=== PATIENT | female | born 1950 | race Caucasian/White ===

== ENCOUNTER 2018-12-24 18:19 | Inpatient (IN) | payer MEDICARE, SELFPAY ==
[2018-12-24 18:21] VITALS: BP 122/68; PULSE 108; RESP 18; TEMP 36.4; O2SAT 93; BMI 23.1
[2018-12-24] MEDS: 0.9% Normal Saline 1,000 ML 1000 ML IV (19:02)
--- NOTE | 2018-12-24 19:17 | ED.VISSUMM ---
- ER Visit Summary Date of Service: 12/24/18 Chief Complaint: [Blood in stool] History of Present Illness: The patient is a 68 F [presents to the emergency department but in her stool for several days. Patient states that initially stool was dark but has turned more bloody today. Patient states that she has had 3 other episodes of blood in her stool over the last 3 years. Patient both times has had colonoscopy and EGD without any source being found. 3 years ago she did require a transfusion requiring 3 units of blood. She denies any abdominal pain. She denies feeling lightheaded or dizzy. Patient has noted that at times today her heart rates gone up to almost 120. Patient is not on any blood thinners. She has no medical history. No history of bleeding ulcers. She denies alcohol use other than on a rare occasion.] Physical Examination: [HEENT-PERRLA, EOMI. Cranial nerves II through XII grossly intact. TMs clear. Mucous membranes moist. No adenopathy. Cardiovascular-regular rate and rhythm without murmur or ectopy Lungs-clear to auscultation, chest wall stable without crepitus or subcu emphysema Abdomen-normoactive bowel sounds, soft, nontender, no rebound or rigidity, no peritoneal signs. Rectal exam-no bleeding hemorrhoids noted or fissures. Patient does have maroon stool is Hemoccult positive. Extremities-intact ?4, normal range of motion, normal pulses, atraumatic] Test Results: [CBC with differential obtained showed a white count of 11.4, hemoglobin 8.0, hematocrit 23, platelets 163. Sodium was 140, potassium 3.4, chloride 108, CO2 23, glucose 157, BUN 29, gram 0.88. Orthostatics were negative.] Emergency Department Course and Treatment: [Patient was given normal saline and she had a type and screen sent. Case was discussed with general surgeon on-call as well as with the admitting physician Dr. Aguero who will admit patient.] Treatment Plan: [Admit for serial H&H's and further investigation of the source of bleeding.] Disposition: [Admit] Impression: [Gastrointestinal hemorrhage] This note was generated with [employer] dictation software. It may contain incorrect words, spelling, and punctuation that were not noted in review of the chart prior to signing ED Disposition - Plan for ED Patient: Referrals: [facility] Doctor,Out of [Primary Care Provider] -
--- NOTE | 2018-12-24 19:17 | ED.RN ---
Report taken from ADAM. Live placed no blood, he will come back for labs. PT resting in bed comfortably. Updated POC.
[2018-12-24 19:27] VITALS: BP 128/70; BP 131/64; BP 133/57; PULSE 84; PULSE 88
[2018-12-24 19:33] LABS: Absolute Lymphocyte Count 2.04 X10^3/ul (0.83-4.51); Absolute Neutrophil Count 8.5 X10^3/uL (2.0-7.7); Basophil# 0.02 X10^3/uL; Basophil% 0.2 % (0-1); Eosinophil# 0.06 X10^3/uL; Eosinophils% 0.5 % (0-5); Hematocrit 22.9 % (37-47); Lymphocyte # 2.04 X10^3/ul (4.0); Mean Corp Hgb Conc 34.9 g/gl (32-36); Mean Corpuscular Hgb 30.1 pg (27.0-32.0); Mean Corpuscular Volume 86.1 fL (81-99); Mean Platelet Vol. 9.9 fl (6.2-12.0); Monocyte# 0.74 X10^3/uL; Monocyte% 6.5 % (0-10); Neutrophil # 8.49 X10^3/uL (2.7-7.7); Neutrophil % 74.7 % (47-70); Platelet Count 163 K/mm3 (150-450); RBC Distribution Width CV 13.6 % (11.6-14.6); RBC Distribution Width SD 43.3 fl (35.1-43.9); Red Blood Count 2.66 M/mm3 (4.2-5.4); White Blood Count 11.4 K/mm3 (4.4-11.0)
[2018-12-24 19:43] LABS: POSITIVE COUNT NO; POSITIVE DIFFERENTIAL NO; POSITIVE MORPHOLOGY NO
[2018-12-24 19:55] LABS: Anion Gap 9 (5-15); BUN 29 mg/dL (7-18); BUN/Creat Ratio 33.1 RATIO (10-20); Calcium,Total 8.1 mg/dL (8.5-10.1); Chloride 108 mmol/L (98-107); Creatinine, Serum 0.88 mg/dL (0.55-1.02); EST Glomerular Filtration Rate 68 mL/min (>60); Est Glom Filt Rate - Afr Amer 82 mL/min (>60); Estimated Creatinine Clearance 51.37 ml/min; Glucose 157 mg/dL (74-106); Potassium 3.4 mmol/L (3.5-5.1); Sodium Level 140 mmol/L (136-145)
--- NOTE | 2018-12-24 20:43 | PCM.HP.STD ---
Problem List (1) Chronic anemia Status: Chronic (2) History of GI bleed Status: Chronic History of Present Illness Date of Admission: 12/24/18 Chief Complaint: Bloody stool. The patient is a 68 year old F with past medical history as mentioned above presented to the emergency room because of bloody stool. Today, she had a bloody bowel movement with maroon-colored stool, large amount, associated with dizziness and her heart rate was around 119 on her Fitbit watch, was pale, weak and tired and without aggravating or relieving factors. She denied abdominal pain, nausea or vomiting. She mentioned that the last 2 to 3 days, she has been having dark-colored stool, more black-colored but today, it was maroon-colored stool. Patient denies use of NSAIDs. She denied epigastric pain or heartburn. Denied chest pain, shortness of breath, syncope or presyncope. She has history of GI bleed back in 2015, underwent upper EGD, colonoscopy as well as capsule endoscopy and no source of bleeding identified. During that time, she received 3 months of packed RBCs. Again on 2017, she had another episode of GI bleed, underwent upper EGD that again showed no evidence of active bleeding. In the emergency department, she was afebrile, slightly tachycardic, blood pressure stable. Rectal examination was performed by the ER physician, revealed maroon-colored stool, no bleeding hemorrhoids. Routine blood work was remarkable for mild leukocytosis, hemoglobin of 8 grams per deciliter, potassium 3.4. BUN was 29, creatinine was normal. She is being admitted for GI bleed and acute on chronic blood loss anemia. Past Medical History Past Medical History (Chronic Problems): Chronic Problems Chronic anemia (Chronic) History of GI bleed (Chronic) Allergies No Known Allergies Allergy (Verified 12/24/18 18:21) Home Medications: Ambulatory Orders Medication Instructions Recorded NK 12/24/18 Surgical History: - - Dilatation and curettage. 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 Denies: Anorexia, Chills, Fever Eyes: Denies: Blurred vision, Double vision, Drainage, Redness HEENT: Denies: Difficulty Hearing, Dysphasia, Ear Pain, Eye Pain, Nasal bleeding, Nasal Congestion, Sore Throat Cardiovascular: Reports: Light Headedness. Denies: Chest Pain, Chest Pressure, Chest Tightness, Edema, Heaviness, Orthopnea, Palpitations, Paroxysmal Noc. Dyspnea, Syncope Respiratory: Denies: Cough, Hemoptysis, Pleuritic Pain, Shortness of Breath, Sputum production, Wheezing Gastrointestinal: Reports: Hematochezia, Melena. Denies: Abdominal Pain, Constipation, Diarrhea, Hematemesis, Nausea, Vomiting Genitourinary: Denies: Dysuria, Frequency, Hematuria Musculoskeletal: Denies: Arm Pain, Back Pain, Foot Pain Skin: Denies: Dryness, Rash Neurological: Denies: Balance problems, Double vision, Change in Speech, Slurred speech, Confusion, Focal weakness, Headaches, Incoordination Psychiatric: Denies: Anxiety, Depression Endocrine: Denies: Change in Body Habitus, Polydipsia, Polyuria VTE Information - Inpt Only VTE Present on Admission: No VTE Mechan Device Prophylaxis: SCD's VTE Pharm Prophylaxis ordered?: No - Physical Exam General: Alert, Oriented x3, Cooperative, No apparent distress, - - Pale. HEENT: Atraumatic, PERRLA, EOMI, Normocephalic Oral: Moist Mucosa, No Gingival or Mucosal Lesions/ Ulcerations Neck: Supple, No JVD, Negative Carotid Bruits, Trachea Midline, Thyroid Normal Size and Texture Lungs: Clear to auscultation, Normal air movement, No rhonchi, No wheeze, No rales, Diminished Cardiovascular: Regular rate, Regular Rhythm, Normal S1, Normal S2, No murmurs, PMI Normal Abdomen: Bowel Sounds Present, Soft, Non Tender, Non-Distended, No Hepato-splenomegaly Extremities: No clubbing, No cyanosis, No edema Skin: No rashes, No breakdown Lymphatic: No Cervical, Supraclavicular, or Inguinal Adenopathy Neurological: Cranial nerves II-XII grossly intact, Motor Exam 5/5 strength throughout Psych/Mental Status: Normal Affect, Appropriate, Alert and oriented to time, place, person, mood and affect Vital Signs Temp Pulse Resp BP Pulse Ox 97.6 F L 88 18 131/64 H 93 12/24/18 18:21 12/24/18 19:27 12/24/18 18:21 12/24/18 19:27 12/24/18 18:21 Oxygen Delivery Method Room Air Weight: 135 lb Body Mass Index (BMI) 23.1 Microbiology Past 72 Hours 12/24/18 19:00 Stool Occult Blood (RADHA) - Final Stool Laboratory Tests Past 24 Hrs 12/24/18 12/24/18 12/24/18 19:15 19:15 19:15 WBC 11.4 H RBC 2.66 L Hgb 8.0 L Hct 22.9 L MCV 86.1 MCH 30.1 MCHC 34.9 RDW 13.6 RDW Differential 43.3 Plt Count 163 MPV 9.9 Immature Gran % (Auto) 0.100 Neut % (Auto) 74.7 H Lymph % (Auto) 18.0 L Willacy % (Auto) 6.5 Eos % (Auto) 0.5 Baso % (Auto) 0.2 Absolute Neuts (auto) 8.5 H Absolute Lymphs (auto) 2.04 Total Counted Not Reportable Sodium 140 Potassium 3.4 L Chloride 108 H Carbon Dioxide 23.0 Anion Gap 9 BUN 29 H Creatinine 0.88 Estim Creat Clear Calc 51.37 Est GFR (MDRD) Af Amer 82 Est GFR (MDRD) Non-Af 68 BUN/Creatinine Ratio 33.1 H Glucose 157 H Calcium 8.1 L Blood Type O POSITIVE Antibody Screen NEGATIVE Assessment/Plan This is a 68 years old female patient presented to the emergency room because of bloody stools and she is being admitted for GI bleed and acute on chronic blood loss anemia. #1 GI bleed: Unknown source, could be upper or lower GI bleeding. BUN is elevated raising the possibility of upper GI bleed. Patient had a history of GI bleed in the past, status post upper EGD, colonoscopy and capsule endoscopy in 2016, no source of bleeding identified. Another episode of GI bleed on 2018, status post upper EGD, no source of bleeding identified. At this time, hemoglobin is 8 g/dL. Platelet count is normal. She is slightly tachycardic, other vitals are stable. Plan: Admit to [facility] floor, telemetry, bedrest, clear liquids, IV fluids, start IV Protonix, H&H every 8 hours, type and crossmatch 2 units of packed RBCs, transfuse if hemoglobin less than 8 g/dL, pro time and INR, general surgery consult. #2 acute on chronic blood loss anemia: According to the patient, her baseline hemoglobin has been around 11 g/dL. She received blood transfusion back in 2015, received 3 units of packed RBCs. At this time, hemoglobin is 8 g/dL. Plan to transfuse if hemoglobin less than 8 g/dL. #3 hypokalemia: Potassium is 3.4. will give K. Dur 60 mEq x 1 p.o., repeat BMP tomorrow morning. #4 DVT prophylaxis: SCDs. This note was generated with [employer] software. It may contain incorrect words, spelling, and punctuation that were not noted in checking the note before signing. Code Visit Inpatient E&M: 12702 Init Hosp L3
[2018-12-24 20:47] VITALS: BP 132/62; PULSE 85; RESP 16; TEMP 36.9; O2SAT 100
[2018-12-24 21:14] VITALS: BMI 23.6; BMI 23.7
[2018-12-24 21:59] VITALS: PULSE 97
[2018-12-24 22:17] VITALS: BP 120/61; PULSE 85; RESP 16; TEMP 37.1; O2SAT 100
[2018-12-24] MEDS: 0.9% Normal Saline 1,000 ML 100 ML IV (22:30)
[2018-12-24 23:01] LABS: Hematocrit 21.1 % (37-47); Hemoglobin 7.3 g/dl (12.0-15.0)
[2018-12-24 23:10] LABS: International Normalized Ratio 1.2; Prothrombin Time (Protime)PT. 14.9 SECONDS (11.7-14.9)
[2018-12-25] VITALS (20 sets, daily range): BP systolic 98–148; BP diastolic 39–79; PULSE 60–90; RESP 16–18; TEMP 36.4–37; O2SAT 93–100
--- NOTE | 2018-12-25 03:15 | NURSING ---
Pt mentioned that she took activated charcoal a few days ago for upset stomach.
[2018-12-25 05:14] LABS: Absolute Lymphocyte Count 2.07 X10^3/ul (0.83-4.51); Absolute Neutrophil Count 6.5 X10^3/uL (2.0-7.7); Basophil# 0.02 X10^3/uL; Basophil% 0.2 % (0-1); Eosinophil# 0.05 X10^3/uL; Eosinophils% 0.6 % (0-5); Hematocrit 24.6 % (37-47); Hemoglobin 8.5 g/dl (12.0-15.0); Lymphocyte # 2.07 X10^3/ul (4.0); Lymphocyte % 22.8 % (19-41); Mean Corp Hgb Conc 34.6 g/gl (32-36); Mean Corpuscular Hgb 30.4 pg (27.0-32.0); Mean Corpuscular Volume 87.9 fL (81-99); Mean Platelet Vol. 10.3 fl (6.2-12.0); Monocyte# 0.43 X10^3/uL; Monocyte% 4.7 % (0-10); Neutrophil # 6.49 X10^3/uL (2.7-7.7); Neutrophil % 71.6 % (47-70); Platelet Count 140 K/mm3 (150-450); RBC Distribution Width CV 13.9 % (11.6-14.6); White Blood Count 9.1 K/mm3 (4.4-11.0)
[2018-12-25 05:21] LABS: POSITIVE COUNT NO; POSITIVE DIFFERENTIAL NO; POSITIVE MORPHOLOGY NO
[2018-12-25 05:31] LABS: Anion Gap 5 (5-15); BUN 17 mg/dL (7-18); BUN/Creat Ratio 26.8 RATIO (10-20); Calcium,Total 8.2 mg/dL (8.5-10.1); Chloride 116 mmol/L (98-107); Creatinine, Serum 0.63 mg/dL (0.55-1.02); EST Glomerular Filtration Rate 98 mL/min (>60); Est Glom Filt Rate - Afr Amer 119 mL/min (>60); Glucose 97 mg/dL (74-106); Potassium 4.5 mmol/L (3.5-5.1); Sodium Level 144 mmol/L (136-145)
--- NOTE | 2018-12-25 07:14 | CON.PCM_ITS ---
Reason for Consult Date of Consultation: 12/25/18 History of Present Illness: The patient is a 68 year old F presented due to GI bleed. Patient does have a past medical history for a GI bleed x2. Back in 2015 while she is at home in [place] she needed 3 units packed red blood cells also had an EGD and col onoscopy as well as capsule endoscopy which were all negative per the patient. Last December patient was in [place] and she had a small amount of dark red blood per rectum she did go into did not need any transfusions. She did choose to do an outpatient work-up back at home. A week later she had an upper endoscopy which did not show anything. She was told may be avoid harder foods or nuts that she may have scratched the lining of her esophagus. Patient denies any history of heartburn reflux or abdominal pain in the past. Patient states that on December 22 she felt like her stomach was heavy denies any pain so she took active charcoal x2. Patient did have a small bowel movement which was darker but also had a small amount of dark blood as well. Patient decided to try to to rest her stomach and not eat as much that day. The next morning she had the same small bowel movement which was darker along with a small amount of dark red blood. She did fast that day. Yesterday she had a little bit of broth and ice cream and at 6 PM she did have a large amount of diarrhea which was black/maroon per patient and that was her last bowel movement. Patient denied any abdominal pain yesterday or today. Patient will be in town until January 03 and then she will leave for [place] for the next month. 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, - Lives: Spouse/ Significant Other Smoking Status: Never smoker Alcohol: None Drugs: None - *Family History Maternal History Items: Heart Disease, Hypertension Paternal History Items: Cancer - Physical Exam General: Alert, Oriented x3, Cooperative, No apparent distress HEENT: Atraumatic Lungs: Normal air movement Cardiovascular: Regular rate Abdomen: Soft, Non Tender - No peritoneal signs, Non-Distended Extremities: No clubbing, No cyanosis, No edema Neurological: Cranial nerves II-XII grossly intact Psych/Mental Status: Normal Affect Vital Signs Temp Pulse Resp BP Pulse Ox 98.6 F 71 16 113/39 L 96 12/25/18 03:13 12/25/18 03:13 12/25/18 03:13 12/25/18 03:13 12/25/18 03:13 Oxygen Delivery Method Room Air Weight: 137 lb 12.623 oz Body Mass Index (BMI) 23.6 Intake and Output for Last 24 Hours 12/23/18 12/24/18 12/25/18 23:59 23:59 23:59 Intake Total 2312 / 2312 Output Total 2300 / 2300 Balance Microbiology Past 72 Hours 12/24/18 19:00 Stool Occult Blood (RADHA) - Final Stool Laboratory Tests Past 24 Hrs 12/24/18 12/24/18 12/24/18 19:15 19:15 19:15 WBC 11.4 H RBC 2.66 L Hgb 8.0 L Hct 22.9 L MCV 86.1 MCH 30.1 MCHC 34.9 RDW 13.6 RDW Differential 43.3 Plt Count 163 MPV 9.9 Immature Gran % (Auto) 0.100 Neut % (Auto) 74.7 H Lymph % (Auto) 18.0 L Nye % (Auto) 6.5 Eos % (Auto) 0.5 Baso % (Auto) 0.2 Absolute Neuts (auto) 8.5 H Absolute Lymphs (auto) 2.04 Total Counted Not Reportable PT INR Sodium 140 Potassium 3.4 L Chloride 108 H Carbon Dioxide 23.0 Anion Gap 9 BUN 29 H Creatinine 0.88 Estim Creat Clear Calc 51.37 Est GFR (MDRD) Af Amer 82 Est GFR (MDRD) Non-Af 68 BUN/Creatinine Ratio 33.1 H Glucose 157 H Calcium 8.1 L Blood Type O POSITIVE Antibody Screen NEGATIVE Crossmatch 12/24/18 12/24/18 12/24/18 19:15 22:45 22:45 WBC RBC Hgb 7.3 L Hct 21.1 L MCV MCH MCHC RDW RDW Differential Plt Count MPV Immature Gran % (Auto) Neut % (Auto) Lymph % (Auto) Nye % (Auto) Eos % (Auto) Baso % (Auto) Absolute Neuts (auto) Absolute Lymphs (auto) Total Counted PT 14.9 INR 1.2 Sodium Potassium Chloride Carbon Dioxide Anion Gap BUN Creatinine Estim Creat Clear Calc Est GFR (MDRD) Af Amer Est GFR (MDRD) Non-Af BUN/Creatinine Ratio Glucose Calcium Blood Type Antibody Screen Crossmatch See Detail 12/25/18 12/25/18 04:35 04:35 WBC 9.1 RBC 2.80 L Hgb 8.5 L Hct 24.6 L MCV 87.9 MCH 30.4 MCHC 34.6 RDW 13.9 RDW Differential 45.0 H Plt Count 140 L MPV 10.3 Immature Gran % (Auto) 0.100 Neut % (Auto) 71.6 H Lymph % (Auto) 22.8 Nye % (Auto) 4.7 Eos % (Auto) 0.6 Baso % (Auto) 0.2 Absolute Neuts (auto) 6.5 Absolute Lymphs (auto) 2.07 Total Counted Not Reportable PT INR Sodium 144 Potassium 4.5 Chloride 116 H Carbon Dioxide 23.0 Anion Gap 5 BUN 17 Creatinine 0.63 Estim Creat Clear Calc 45.20 Est GFR (MDRD) Af Amer 119 Est GFR (MDRD) Non-Af 98 BUN/Creatinine Ratio 26.8 H Glucose 97 Calcium 8.2 L Blood Type Antibody Screen Crossmatch Assessment/Plan 68-year-old female with GI bleed 1. Did offer the patient EGD and colonoscopy due to patient's history of GI bleed. Did discuss the procedure including but not limited to risk of bleeding, perforation which may require emergency surgery/transfer to tertiary care facility, injury to another organ, and anesthesia. Currently patient does not think that she wants to undergo the EGD or the colonoscopy as last time and also the time before they did not find anything and she states she knows she should not eat harder foods or nuts. Discussed with patient I would recommend EGD or colonoscopy because we cannot say that nothing further was going on. Patient will think about it today. If patient does not elect to get the EGD or colonoscopy to remain stable I will recommend her going home with PPI twice daily for 2 weeks and then a PPI once a day after that. Patient was agreeable that if she did not get any endoscopy but if she had any recurrent episodes she would come in to get that done. Addendum: Patient did have dark clot bowel movement. She is agreeable to undergo an EGD and colonoscopy. We will begin the bowel prep of Dulcolax x4 and wait 2 hours Gatorade and MiraLAX mixture total of 64 ounces of Gatorade and MiraLAX of 8.3 ounces. Donna Amos M.D. Pager: [phone] [facility] [address] [place] [address], [facility], [address] [place] [address] Office: [phone] Code Visit Inpatient E&M: 59697 Init Hosp L2
[2018-12-25] MEDS: Bisacodyl 5 MG Tablet 20 MG PO (09:15)
[2018-12-25] MEDS: Polyethylene Glycol 3350 17 GM PACKET 238 GM PO (09:16)
[2018-12-25] MEDS: 0.9% Normal Saline 1,000 ML 100 ML IV (09:21)
--- NOTE | 2018-12-25 12:40 | EKG12_ITS ---
Test Reason : PRE OP Blood Pressure : / mmHG Vent. Rate : 076 BPM Atrial Rate : 076 BPM P-R Int : 198 ms QRS Dur : 090 ms QT Int : 402 ms P-R-T Axes : 069 030 049 degrees QTc Int : 452 ms Normal sinus rhythm Normal ECG Confirmed by CHRISTEN DIAL, BALDEMAR ([id number]), editor newspaper AUSTIN GONZALEZ ([id number]) on 12/28/2018 12:43:20 PM Referred By: MARCELINO Confirmed By:BALDEMAR VELÁSQUEZ MD
[2018-12-25 14:37] LABS: Hematocrit 31.4 % (37-47); Hemoglobin 10.7 g/dl (12.0-15.0)
--- NOTE | 2018-12-25 18:16 | PN_ITS ---
Subjective: Patient was seen and examined today, she received 2 units of packed red blood cells today, her last hemoglobin this afternoon was 10.7. She is prepping for her colonoscopy tomorrow, she has maroon liquid in her commode that smells of blood. Patient states that she had a past history of GI bleed but her physicians were not able to ascertain the actual site of the GI bleed and she had testing including a capsule endoscopy. Patient denies taking any anti- inflammatories at home on a regular basis, she takes no prescription medications. - Physical Exam General: Alert, Oriented x3, Cooperative, No apparent distress, Well developed HEENT: Atraumatic, PERRLA, EOMI, Normocephalic Oral: Moist Mucosa Neck: Supple, Trachea Midline, Thyroid Normal Size and Texture Lungs: Clear to auscultation, Normal air movement, No rhonchi, No wheeze, No rales, Diminished, Rales Cardiovascular: Regular rate, Regular Rhythm, Normal S1, Normal S2, No murmurs, No Ectopic Activity Abdomen: Bowel Sounds Present, Soft, Non Tender, Non-Distended, No hernias noted Extremities: No clubbing, No cyanosis, No edema, Capillary Refill Less than 3 Seconds Skin: No rashes, No breakdown Musculoskeletal: No Tenderness to Palpation of Joints or Extremities Neurological: Cranial nerves II-XII grossly intact, Neuro grossly intact, Sensory exam intact to light touch and pain Psych/Mental Status: Normal Affect, Appropriate, Alert and oriented to time, place, person, mood and affect Vital Signs Temp Pulse Resp BP Pulse Ox 98.1 F 79 18 148/78 H 96 12/25/18 16:58 12/25/18 16:58 12/25/18 16:58 12/25/18 16:58 12/25/18 16:58 Oxygen Delivery Method Room Air Weight: 62.5 kg Body Mass Index (BMI) 23.6 Intake and Output for Last 24 Hours 12/23/18 12/24/18 12/25/18 23:59 23:59 23:59 Intake Total 6051 / 6051 Output Total 3400 / 3400 Balance 2651 / 2651 Microbiology Past 72 Hours 12/24/18 19:00 Stool Occult Blood (RADHA) - Final Stool Laboratory Tests Past 24 Hrs 12/24/18 12/24/18 12/24/18 19:15 19:15 19:15 WBC 11.4 H RBC 2.66 L Hgb 8.0 L Hct 22.9 L MCV 86.1 MCH 30.1 MCHC 34.9 RDW 13.6 RDW Differential 43.3 Plt Count 163 MPV 9.9 Immature Gran % (Auto) 0.100 Neut % (Auto) 74.7 H Lymph % (Auto) 18.0 L Sherman % (Auto) 6.5 Eos % (Auto) 0.5 Baso % (Auto) 0.2 Absolute Neuts (auto) 8.5 H Absolute Lymphs (auto) 2.04 Total Counted Not Reportable PT INR Sodium 140 Potassium 3.4 L Chloride 108 H Carbon Dioxide 23.0 Anion Gap 9 BUN 29 H Creatinine 0.88 Estim Creat Clear Calc 51.37 Est GFR (MDRD) Af Amer 82 Est GFR (MDRD) Non-Af 68 BUN/Creatinine Ratio 33.1 H Glucose 157 H Calcium 8.1 L Blood Type O POSITIVE Antibody Screen NEGATIVE Crossmatch 12/24/18 12/24/18 12/24/18 19:15 22:45 22:45 WBC RBC Hgb 7.3 L Hct 21.1 L MCV MCH MCHC RDW RDW Differential Plt Count MPV Immature Gran % (Auto) Neut % (Auto) Lymph % (Auto) Sherman % (Auto) Eos % (Auto) Baso % (Auto) Absolute Neuts (auto) Absolute Lymphs (auto) Total Counted PT 14.9 INR 1.2 Sodium Potassium Chloride Carbon Dioxide Anion Gap BUN Creatinine Estim Creat Clear Calc Est GFR (MDRD) Af Amer Est GFR (MDRD) Non-Af BUN/Creatinine Ratio Glucose Calcium Blood Type Antibody Screen Crossmatch See Detail 12/25/18 12/25/18 12/25/18 04:35 04:35 14:00 WBC 9.1 RBC 2.80 L Hgb 8.5 L 10.7 L Hct 24.6 L 31.4 L MCV 87.9 MCH 30.4 MCHC 34.6 RDW 13.9 RDW Differential 45.0 H Plt Count 140 L MPV 10.3 Immature Gran % (Auto) 0.100 Neut % (Auto) 71.6 H Lymph % (Auto) 22.8 Sherman % (Auto) 4.7 Eos % (Auto) 0.6 Baso % (Auto) 0.2 Absolute Neuts (auto) 6.5 Absolute Lymphs (auto) 2.07 Total Counted Not Reportable PT INR Sodium 144 Potassium 4.5 Chloride 116 H Carbon Dioxide 23.0 Anion Gap 5 BUN 17 Creatinine 0.63 Estim Creat Clear Calc 45.20 Est GFR (MDRD) Af Amer 119 Est GFR (MDRD) Non-Af 98 BUN/Creatinine Ratio 26.8 H Glucose 97 Calcium 8.2 L Blood Type Antibody Screen Crossmatch Medical Necessity - Tobacco Use Smoking Status: Never smoker Assessment/Plan #1 acute GI bleed-not clear at this point whether it is upper or lower GI bleed- patient will undergo an EGD and colonoscopy tomorrow. Patient may have an undiagnosed AVM #2 acute blood loss anemia requiring blood transfusion-H&H will be monitored #3 hypokalemia-corrected Code Visit Inpatient E&M: 05522 Subs Hosp L2
[2018-12-25 20:36] LABS: Hematocrit 31.8 % (37-47); Hemoglobin 10.9 g/dl (12.0-15.0)
[2018-12-26] VITALS (10 sets, daily range): BP systolic 109–146; BP diastolic 58–80; PULSE 65–79; RESP 16–18; TEMP 36.3–36.9; O2SAT 95–100
--- NOTE | 2018-12-26 | IMM_PTH ---
PATIENT: BELLE GOOD LOC: MS3 U#:[id number] AGE/SX: 68/F ROOM: MS313 RE12/24/[address]: Dr. Lavelle Stevens MD : [id number] BED: 1 DIS: 12/26/2018 SPEC #: [id number] RECD: 12/27/18 15:11 STATUS: SOUEmiliana REQ #: [id number] IVANA: 12/26/18 00:[address]: Donna Amos DEPT: IMMUNOHISTOCHEMISTRY RECD BY: Lore Salgado ENTERED: 12/27/18 15:11 SP TYPE: IMMUNO OTHR DR: MD Dr. Ruslan Hill MD No Primary Care Phys Tissues: A - Stomach, NOS Procedures: H Pylori (initial) PHYSICIAN & INSTITUTION [place] [id number] SPECIMEN INFORMATION: Tissue Source: A - Antral biopsy Clinical Info: GI bleed Specimen Number: [id number] CPT code: 58344 METHODOLOGY: Deparaffinized sections of prefer/formalin-fixed tissue or PAP/DQ stained slides are incubated with monoclonal/polyclonal antibodies/oligonucleotide probes. Localization is made via biotin free immunoperoxidase method. Appropriate controls are performed and reacted as expected. Results on target cell population are indicated in the following table: RESULTS: ANTIBODY / CLONE RESULT Block A H Pylori (polyclonal) negative These tests were developed and their performance characteristics determined by [facility]. They may not have been cleared or approved by the [place]. Food and Drug Administration. The FDA has determined that such clearance or approval is not necessary. INTERPRETATION: A. Antral biopsy: Negative for Helicobacter pylori organisms. AM:kriss 12/30/18
[2018-12-26] MEDS: 0.9% Normal Saline 1,000 ML 100 ML IV ×2 (00:15→10:12)
[2018-12-26 03:04] LABS: Absolute Lymphocyte Count 1.98 X10^3/ul (0.83-4.51); Absolute Neutrophil Count 3.7 X10^3/uL (2.0-7.7); Basophil# 0.02 X10^3/uL; Basophil% 0.3 % (0-1); Eosinophil# 0.12 X10^3/uL; Eosinophils% 1.9 % (0-5); Hematocrit 27.7 % (37-47); Hemoglobin 9.6 g/dl (12.0-15.0); Lymphocyte # 1.98 X10^3/ul (4.0); Lymphocyte % 31.8 % (19-41); Mean Corp Hgb Conc 34.7 g/gl (32-36); Mean Corpuscular Hgb 30.4 pg (27.0-32.0); Mean Corpuscular Volume 87.7 fL (81-99); Mean Platelet Vol. 10.6 fl (6.2-12.0); Monocyte# 0.42 X10^3/uL; Monocyte% 6.8 % (0-10); Neutrophil # 3.66 X10^3/uL (2.7-7.7); Neutrophil % 58.9 % (47-70); Platelet Count 136 K/mm3 (150-450); RBC Distribution Width CV 13.3 % (11.6-14.6); RBC Distribution Width SD 40.8 fl (35.1-43.9); Red Blood Count 3.16 M/mm3 (4.2-5.4); White Blood Count 6.2 K/mm3 (4.4-11.0)
[2018-12-26 03:06] LABS: POSITIVE COUNT NO; POSITIVE DIFFERENTIAL NO; POSITIVE MORPHOLOGY NO
--- NOTE | 2018-12-26 06:44 | PN.SURG_ITS ---
Subjective: Patient got 2 units packed red blood cells her current hemoglobin is 9.6. Patient is having no further clots per rectum. She did complete the bowel prep. Denies any abdominal pain. - Physical Exam General: Alert, Oriented x3, Cooperative, No apparent distress Lungs: Normal air movement Cardiovascular: Regular rate Abdomen: Soft, Non Tender, Non-Distended Extremities: No clubbing, No cyanosis, No edema Vital Signs Temp Pulse Resp BP Pulse Ox 97.7 F L 68 16 109/64 97 12/26/18 02:50 12/26/18 02:50 12/26/18 02:50 12/26/18 02:50 12/26/18 02:50 Oxygen Delivery Method Room Air Weight: 137 lb 12.623 oz Body Mass Index (BMI) 23.6 Intake and Output for Last 24 Hours 12/24/18 12/25/18 12/26/18 23:59 23:59 23:59 Intake Total 6051 / 7151 1779 / 1779 Output Total 3400 / 4350 1350 / 1350 Balance 2651 / 2801 429 / 429 Microbiology Past 72 Hours 12/24/18 19:00 Stool Occult Blood (RADHA) - Final Stool Laboratory Tests Past 24 Hrs 12/24/18 12/25/18 12/25/18 19:15 14:00 20:00 WBC RBC Hgb 10.7 L 10.9 L Hct 31.4 L 31.8 L MCV MCH MCHC RDW RDW Differential Plt Count MPV Immature Gran % (Auto) Neut % (Auto) Lymph % (Auto) [place] % (Auto) Eos % (Auto) Baso % (Auto) Absolute Neuts (auto) Absolute Lymphs (auto) Total Counted Crossmatch See Detail 12/26/18 02:40 WBC 6.2 RBC 3.16 L Hgb 9.6 L Hct 27.7 L MCV 87.7 MCH 30.4 MCHC 34.7 RDW 13.3 RDW Differential 40.8 Plt Count 136 L MPV 10.6 Immature Gran % (Auto) 0.300 Neut % (Auto) 58.9 Lymph % (Auto) 31.8 [place] % (Auto) 6.8 Eos % (Auto) 1.9 Baso % (Auto) 0.3 Absolute Neuts (auto) 3.7 Absolute Lymphs (auto) 1.98 Total Counted Not Reportable Crossmatch Medical Necessity - Tobacco Use Smoking Status: Never smoker Assessment/Plan 68-year-old female with GI bleed 1. EGD and colonoscopy scheduled late morning today. Patient no further questions at this time. Donna Amos M.D. Pager: [phone] [facility] [address] [place] [address], [address] [place] [address] Office: [phone]
--- NOTE | 2018-12-26 09:03 | PCM.PN.HOSP ---
Subjective: Patient is a 68-year-old lady presented to the emergency department with hematochezia. 12/26/2018: She is scheduled to undergo endoscopic evaluation both upper and lower Objective: GENERAL: cooperative HEENT: Atraumatic; EYES; Anicteric, Normal Conjunctiva NECK; supple, normal thyroid, RESPIRATORY: Diminished to auscultation bilaterally, CARDIOVASCULAR: Regular S1 S2, no audible murmurs GI: soft, non-tender, normoactive bowel sounds, : No Renal angle tenderness; EXTREMITIES: No edema, no clubbing, no cyanosis. MUSCULOSKELETAL: No Joint Tenderness; NEURO: Awake; no lateralizing signs. SKIN: No Rash PSYCH; Normal affect Vitals/I&O's: Vital Signs Temp Pulse Resp BP Pulse Ox 98.4 F 68 18 146/69 H 100 12/26/18 08:01 12/26/18 08:01 12/26/18 08:01 12/26/18 08:01 12/26/18 08:01 Oxygen Delivery Method Room Air Weight: 62.5 kg Body Mass Index (BMI) 23.6 Intake and Output for Last 24 Hours 12/24/18 12/25/18 12/26/18 23:59 23:59 23:59 Intake Total 6051 / 7151 1779 / 1779 Output Total 3400 / 4350 1350 / 1350 Balance 2651 / 2801 429 / 429 Microbiology Past 72 Hours 12/24/18 19:00 Stool Stool Occult Blood (RADHA) - Final Laboratory Results 12/24/18 19:15: Crossmatch See Detail 12/25/18 14:00: Hgb 10.7 L, Hct 31.4 L 12/25/18 20:00: Hgb 10.9 L, Hct 31.8 L 12/26/18 02:40: WBC 6.2, RBC 3.16 L, Hgb 9.6 L, Hct 27.7 L, MCV 87.7, MCH 30.4, MCHC 34.7, RDW 13.3, RDW Differential 40.8, Plt Count 136 L, MPV 10.6, Immature Gran % (Auto) 0.300, Neut % (Auto) 58.9, Lymph % (Auto) 31.8, Ford % (Auto) 6.8, Eos % (Auto) 1.9, Baso % (Auto) 0.3, Absolute Neuts (auto) 3.7, Absolute Lymphs (auto) 1.98, Total Counted Not Reportable 12/26/18 08:54: Hgb Pending, Hct Pending Current Medications Acetaminophen (Tylenol) 650 mg PO Q6H PRN PRN PRN Reason: Mild Pain (1-3)/Temp > 100.7 F Sodium Chloride () 1,000 mls @ 100 mls/hr IV .Q10H TEJ Last Admin: 12/26/18 00:15 Dose: 100 mls/hr Documented by: Pantoprazole Sodium 40 mg/ (Sodium Chloride) 110 mls @ 330 mls/hr IV Q12 TEJ Last Admin: 12/25/18 21:56 Dose: 330 mls/hr Documented by: Ondansetron HCl (Zofran) 4 mg IV Q8H PRN PRN PRN Reason: NAUSEA/VOMITING Sodium Chloride () 10 - 40 ml IV UD PRN PRN Reason: SALINE FLUSH Medical Necessity - Tobacco Use Smoking Status: Never smoker Assessment/Plan Patient is a 68-year-old lady presented to the emergency department with hematochezia. 1. Acute GI bleed source unknown at this point. Plan is for patient to undergo endoscopic evaluation (both upper and lower) by Dr. Montes De Oca 2. Anemia secondary to acute blood loss anemia from GI bleed. Patient has been transfused 2 unit PRBC following admission 3. Hypokalemia present on admission repleted per protocol 4. DVT prophylaxis SCDs Code Visit Inpatient E&M: 45480 Subs Hosp L2
[2018-12-26 09:07] LABS: Hematocrit 29.7 % (37-47); Hemoglobin 10.2 g/dl (12.0-15.0)
--- NOTE | 2018-12-26 10:00 | CASEMGMT ---
RN CM Face to Face with patient for initial transition planning/care coordination assessment. RN CM introduced self and role at [facility]. Patient lying in bed, alert and oriented. Patient willing to participate in assessment and is able to answer all questions appropriately. Care providers, pharmacy, and demographics verified. Patient wishes to discharge home, denies need for home health at this time. Patient states she has no further needs or concerns at this time. CM to follow for discharge planning needs that may arise. PCP: Patient has PCP in [place] Specialists: None Preferred Pharmacy: [facility] Insurance: White Source Prescription Benefit: yes Living Will/HPOA: yes, daughter Jordyn Barnes. Papers in [place] LNOK: Daughter, sister. Living Arrangements: Patient lives alone, is independent. Staying with friends while visiting [place]. Transportation: self/family DME/HHC: Patient denies need for DME or HHC Disposition Plan: Patient to discharge home with family support and follow-up plans in place. Nathaly GAINES, RN, CM
[2018-12-26] MEDS: 0.9% NaCl Peripheral Flush Adult/Peds IV (10:12)
--- NOTE | 2018-12-26 11:00 | EGD_PTH ---
PATIENT: BELLE GOOD LOC: MS3 U#:[id number] AGE/SX: 68/F ROOM: MS313 RE12/24/[address]: Dr. Lavelle Stevens MD : [id number] BED: 1 DIS: 12/26/2018 SPEC #: [id number] RECD: 12/26/18 15:24 STATUS: DIOR REConstantine #: [id number] IVANA: 12/26/18 11:[address]: Donna Amos DEPT: SURGICAL PATHOLOGY RECD BY: Colin Alexander ENTERED: 12/27/18 09:44 SP TYPE: EGD BIOPSY OT DR: MD Dr. Ruslan Hill MD No Primary Care Phys Tissues: A - Gastric mucous membrane B - Gastric mucous membrane Procedures: Special Stain Group II Surgery Specimen Level IV Alcian Blue/PAS (control) HEADER OPERATION: Colonoscopy, E[place] [place] PRE-OP DIAGNOSIS: GI bleed TISSUE SUBMITTED: A - Antral biopsy for histo and H. pylori, B - GE junction biopsy MICROSCOPIC DIAGNOSIS A. Gastric antrum, biopsy: Mild chronic gastritis. B. Gastroesophageal junction, biopsy: Fragment of gastric mucosa with mild to focal moderate chronic inflammation. No evidence of intestinal metaplasia. No evidence of dysplasia. See comment. AM:kriss 12/28/18 COMMENT A. The results of immunohistochemistry for Helicobacter pylori will be reported separately ([id number]). B. Alcian blue/PAS stain with matched control supports the above diagnosis. Squamous mucosa is not represented in the biopsy. Clinical correlation is suggested. MICROSCOPIC DESCRIPTION Slides are reviewed. GROSS DESCRIPTION A - Received in fixative is one container labeled with the patient's name and designated antral biopsy. The specimen consists of one irregular fragment of light horner soft tissue that measures 0.5 x 0.3 x 0.1 cm. The specimen is totally submitted in one cassette. B - Received in fixative is one container labeled with the patient's name and designated GE junction biopsy. The specimen consists of one irregular fragment of light horner soft tissue that measures 0.3 x 0.3 x 0.1 cm. The specimen is totally submitted in one cassette. / AM:kriss 12/27/18 TC:3 CPT: 12962 x2, 32210
--- NOTE | 2018-12-26 11:04 | PCA ---
pt off floor
--- NOTE | 2018-12-26 14:04 | PCM.DC ---
- Discharge Diagnoses Current Active Problems: Current Active and Chronic Problems Chronic anemia (Chronic) History of GI bleed (Chronic) You will use the following diet at home:: No restrictions Allergies/Adverse Reactions: Allergies No Known Allergies Allergy (Verified 12/24/18 18:21) Medications to take at Discharge Iron Poly/Vit C [Niferex-150] 150 mg PO DAILYCM #30 cap 12/26/18 Pantoprazole Sodium [Protonix] 40 mg PO DAILY #30 tab 12/26/18 The following prescriptions were given: Iron Poly/Vit C [Niferex-150] 150 mg PO DAILYCM #30 cap Transmission Status: Pending to [facility] Pantoprazole Sodium [Protonix] 40 mg PO DAILY #30 tab Transmission Status: Pending to [facility] Primary Care Physician: Arthur Gant,Out of [Primary Care Provider] - Please follow up with your Primary Care Physician in: in 1-2 weeks Test Results: Test results from this visit will be discussed in further detail at your follow-up appointment, if applicable. Proposed Discharge Date: 12/26/18
--- NOTE | 2018-12-26 14:07 | PCM.DC.SUM ---
Discharge Date and Diagnosis - Problem List Patient Problems: Active and Suspected Problems Symptomatic anemia (Acute) Date of Admission: 12/24/18 Date of Discharge: 12/26/18 - Primary Discharge Diagnosis Active and Suspected Problems Symptomatic anemia (Acute) - Secondary Discharge Diagnosis Chronic Problems Chronic anemia (Chronic) History of GI bleed (Chronic) Hospital Course and Treatment Summary of Care Provided: Patient is a 68-year-old lady presented to the emergency department with hematochezia. 1. Acute GI bleed source unknown at this point. Plan is for patient to undergo endoscopic evaluation (both upper and lower) by Dr. Montes De Oca patient endoscopic evaluation failed to demonstrate any source of bleeding. 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 Anemia secondary to acute blood loss anemia from GI bleed. Patient transfused 2 unit PRBC following admission 3. Hypokalemia present on admission repleted per protocol 4. DVT prophylaxis SCDs Patient Problems: Active and Suspected Problems Symptomatic anemia (Acute) - Physical Exam General: Alert HEENT: Atraumatic Neck: Supple Lungs: Diminished Cardiovascular: Regular rate Abdomen: Bowel Sounds Present Vital Signs Temp Pulse Resp BP Pulse Ox 98.0 F 73 18 129/62 H 100 12/26/18 13:01 12/26/18 13:01 12/26/18 13:01 12/26/18 13:01 12/26/18 13:01 Oxygen Delivery Method Room Air Weight: 62.5 kg Body Mass Index (BMI) 23.6 Intake and Output for Last 24 Hours 12/24/18 12/25/18 12/26/18 23:59 23:59 23:59 Intake Total 6051 / 7151 2279 / 2279 Output Total 3400 / 4350 1350 / 1350 Balance 2651 / 2801 929 / 929 Microbiology Past 72 Hours 12/24/18 19:00 Stool Occult Blood (RADHA) - Final Stool Laboratory Tests Past 24 Hrs 12/25/18 12/25/18 12/26/18 14:00 20:00 02:40 WBC 6.2 RBC 3.16 L Hgb 10.7 L 10.9 L 9.6 L Hct 31.4 L 31.8 L 27.7 L MCV 87.7 MCH 30.4 MCHC 34.7 RDW 13.3 RDW Differential 40.8 Plt Count 136 L MPV 10.6 Immature Gran % (Auto) 0.300 Neut % (Auto) 58.9 Lymph % (Auto) 31.8 Nicholas % (Auto) 6.8 Eos % (Auto) 1.9 Baso % (Auto) 0.3 Absolute Neuts (auto) 3.7 Absolute Lymphs (auto) 1.98 Total Counted Not Reportable 12/26/18 08:54 WBC RBC Hgb 10.2 L Hct 29.7 L MCV MCH MCHC RDW RDW Differential Plt Count MPV Immature Gran % (Auto) Neut % (Auto) Lymph % (Auto) Nicholas % (Auto) Eos % (Auto) Baso % (Auto) Absolute Neuts (auto) Absolute Lymphs (auto) Total Counted Discharge Diet: No Restrictions Home Medications: Medications to take at Discharge Iron Poly/Vit C [Niferex-150] 150 mg PO DAILYCM #30 cap 12/26/18 Pantoprazole Sodium [Protonix] 40 mg PO DAILY #30 tab 12/26/18 Following Prescrptions Were Given to Patient: Iron Poly/Vit C [Niferex-150] 150 mg PO DAILYCM #30 cap Transmission Status: Pending to [facility] Pantoprazole Sodium [Protonix] 40 mg PO DAILY #30 tab Transmission Status: Pending to [facility] Primary Care Physician: Arthur Gant,Out of [Primary Care Provider] - Please follow up with your Primary Care Physician in: in 1-2 weeks Disposition: Home Minutes spent on discharge:: 35 Patient Condition:: Stable Medical Necessity - Tobacco Use Smoking Status: Never smoker Meaningful Use Info Meaningful Use Diagnoses (Choose all that apply): None applicable Code Visit Inpatient E&M: 92313 Disch Hosp
--- NOTE | 2018-12-28 10:45 | OP.ENDO_ITS ---
12/28/2018 Out Of [facility] Doctor Re : Colonoscopy procedure for Kristine Aranda Dear [facility] Doctor This procedure was performed on Wednesday, December 26, 2018. My impressions and recommendations are as follows: Impressions : - Hemorrhoids found on perianal exam. - Non-bleeding external and internal hemorrhoids. - The entire examined colon is normal. - No specimens collected. Recommendations : - Return patient to hospital [facility] for possible discharge same day. - Resume regular diet. - Continue present medications. - Repeat colonoscopy in 10 years for screening purposes. My findings are described in the full procedure note, which is enclosed. If I can be of further assistance, please feel free to contact me at Doctor phone number(s): , Work: . Sincerely, MD Donna Sales MD 12/26/2018 11:58:08 AM This report has been signed electronically.
--- NOTE | 2018-12-28 10:45 | OP.ENDO_ITS ---
12/28/2018 Out Of [facility] Doctor Re : Upper GI endoscopy procedure for Kristine Aranda Dear [facility] Doctor This procedure was performed on Wednesday, December 26, 2018. My impressions and recommendations are as follows: Impressions : - Z-line variable, 39 cm from the incisors. Biopsied. - Gastritis. Biopsied. - Normal examined duodenum. - Bilious gastric fluid. Recommendations : - Await pathology results. - Return patient to hospital [facility] for possible discharge same day. - Use Protonix (pantoprazole) 40 mg PO daily for 4 weeks. - Continue present medications. My findings are described in the full procedure note, which is enclosed. If I can be of further assistance, please feel free to contact me at Doctor phone number(s): , Work: . Sincerely, MD Donna Sales MD 12/26/2018 12:04:44 PM This report has been signed electronically.
== END 2018-12-26 15:40 | disposition home or self-care (01) | DRG 378 ==
LOC: ED 20:05 → MS3 20:57
PROVIDERS: Anesthesiology; Surgery; Admitting Provider Hospitalist; Emergency Provider Emergency Medicine; Visit Provider Internal Medicine
PROC: 0DJD8ZZ Inspection of Lower Intestinal Tract, Via Natural or Artificial Opening Endoscopic (ICD-10-PCS; CPT 45378; principal; 2018-12-26 10:55)
DX: K92.2 Gastrointestinal hemorrhage, unspecified (principal); D62 Acute posthemorrhagic anemia; E87.6 Hypokalemia; K64.0 First degree hemorrhoids; K64.4 Residual hemorrhoidal skin tags; K29.70 Gastritis, unspecified, without bleeding
CPT/HCPCS: 36415; 80048; 82274; 85014; 85018; 85025; 85610; 86850; 86900; 86920; 86922; 88305; 88313; 88342; 93005; 99285; J7030; J7040; P9016; A4216; J2405

== ENCOUNTER 2022-04-08 21:01 | Inpatient (IN) | payer MEDICARE, SELFPAY ==
[2022-04-08 21:03] VITALS: BP 176/48; PULSE 98; RESP 16; TEMP 36.7; O2SAT 100; BMI 21.4
--- NOTE | 2022-04-08 21:55 | EKG12_ITS ---
Test Reason : DYSRHYTHMIA Blood Pressure : / mmHG Vent. Rate : 096 BPM Atrial Rate : 096 BPM P-R Int : 174 ms QRS Dur : 078 ms QT Int : 374 ms P-R-T Axes : 071 038 053 degrees QTc Int : 472 ms Normal sinus rhythm Normal ECG Confirmed by ESHA DIAL, PRITESH ([id number]), index editor ZANA VILLANUEVA ([id number]) on 04/09/2022 2:06:52 P M Referred By: PL Confirmed By:YOHANNES BALBUENA MD
--- NOTE | 2022-04-08 21:56 | ED.VIS.GI ---
HPI HPI - GI History of Present Illness Chief Complaint: GI Bleed Informant: patient Narrative Narrative: Patient presents with concern for GI bleed. Patient states she has had about 4 GI bleeds since 2016. She is got multiple transfusion. She is states she has had innumerable upper and lower endoscopies. They have never found any source of bleeding on her. She does not want anymore. She states that somewhere between 7 and 9 days ago she had some black stools. She never had pain. These went on for about 2 days and then slowly improved. She states she went back to a normal light brown stool. On Wednesday she took 1 baby aspirin for some congestion. Then starting last evening she has had several maroonish stools. She states she is not moving her bowels more. No diarrhea. No cramping or pain. No fevers or chills. No nausea or vomiting. She has been eating normally including today. Denies history of diverticular disease. Patient has no chronic medical conditions other than prior GI bleeds. Patient is on no medications including not on aspirin or pantoprazole at this time. No allergies No recent surgeries Non-smoker Patient does not routinely take nonsteroidals. She takes vitamin supplements and she took 1 baby aspirin only. PFSH PFSH Medical History Non-smoker Home Medications iron aspgl and ps cmplx 150 mg-vit C 50 mg-succinic acid 50 mg capsule 150 mg PO DAILYCM #30 caps 12/26/18 [Rx Last Taken Unknown] pantoprazole 40 mg tablet,delayed release 40 mg PO DAILY #30 tabs 12/26/18 [Rx Last Taken Unknown] Allergy/AdvReac Type Severity Reaction Status Date / Time No Known Allergies Allergy Verified 04/08/22 21:05 Social History Smoking Status: Never smoker ROS ROS ED Constitutional Constitutional ED: Denies chills or fever(s) ENT ENT ED: Denies rhinorrhea Cardiovascular Cardiovascular: Denies chest pain or palpitations Respiratory/Chest Respiratory/Chest: Denies cough or dyspnea Gastrointestinal Gastrointestinal: Reports melena and other Details: See history of present illness for details and timeline. ; Denies abdominal pain, constipation, diarrhea, nausea or vomiting Genitourinary Genitourinary ED: Denies dysuria Musculoskeletal Musculoskeletal: Denies arthralgias Integumentary Reports other Details: No rash. However, her family member does think she looks paler than normal. ; Denies rash Neurologic Neurologic: Denies headache(s) Endocrine Endocrinology: Denies polydipsia or polyuria Hematologic/Lymphatic Hematologic/Lymphatic: Denies easy bleeding or easy bruising Allergic/Immunologic Allergic/Immunologic ED: Denies urticaria EXAM Physical Exam Const Vital Signs: 04/08/22 21:03 04/08/22 23:04 Temperature 98.1 F Temperature Source Temporal Pulse Rate 98 84 Respiratory Rate 16 16 Blood Pressure 176/48 H 107/55 L Blood Pressure Mean 90 72 Pulse Ox 100 99 Oxygen Delivery Method Room Air Room Air Positive well nourished and well developed General Appearance ED: well developed and pallor HEENT atraumatic Eyes General Eye ED: Yes pale conjunctiva; Negative for scleral icterus Resp normal respiratory effort and clear to auscultation bilaterally Cardio regular rate and regular rhythm Cardio Narrative: Questionable of a very quiet and systolic murmur. GI non-tender, non-distended and no masses Auscultation: normoactive bowel sounds; Negative for hyperactive bowel sounds Palpation: soft Back/Spine no CVA tenderness Extremity full ROM Neuro Sensorium / Orientation: alert Psych mental status grossly normal Skin General Skin Exam: pallor MDM MDM MDM Narrative Medical decision making narrative: Patient's white count is normal. Her hemoglobin is severely low at 5.2. Platelets are okay at 49. Coags are normal. Electrolytes are overall unremarkable. Liver function tests are overall unremarkable. Lactic acid is normal. I had a talk with the patient. She is willing to have transfusions. She does not want to have endoscopy because she has had many before that have never shown the cause. And she has had significant symptoms of swallowing problems afterwards. I explained that if we give her transfusions but her counts are not coming up or there is indication of continued bleeding that might be something we would push more for an endoscopy. She states that would be reasonable if that happens and she could be willing to do it then. But she does not want to have an endoscopy just because she dropped her hemoglobins. We went over risk benefits of transfusions which she is familiar with. I discussed case with the hospitalist. Lab Data Attestation: I reviewed the patient's lab results. Labs: Laboratory Results - last 24 hr 04/08/22 04/08/22 04/08/22 22:00 22:00 22:00 WBC 8.1 RBC 2.02 L Hgb 5.2 L* Hct 17.2 L MCV 85.1 MCH 25.7 L MCHC 30.2 L RDW Std Deviation 50.7 H RDW Coeff of Allan 16.9 H Plt Count 249 MPV 10.6 Immature Gran % (Auto) 1.000 H Neut % (Auto) 71.7 H Lymph % (Auto) 18.8 L Craven % (Auto) 7.4 Eos % (Auto) 0.7 Baso % (Auto) 0.4 Absolute Neuts (auto) 5.8 Absolute Lymphs (auto) 1.53 Nucleated RBC % 0 Diff Path Review May foll Platelet Estimate ADEQUATE RBC Morphology N CHROM Hypochromasia 1+ Anisocytosis 1+ PT 14.0 INR 1.1 APTT 27.5 Sodium 136 Potassium 3.7 Chloride 107 Carbon Dioxide 23.0 Anion Gap 6 BUN 18 Creatinine 0.84 Estim Creat Clear Calc 50.74 Est GFR (MDRD) Af Amer 86 Est GFR (MDRD) Non-Af 71 BUN/Creatinine Ratio 21.5 H Glucose 117 H Lactic Acid Calcium 8.6 Total Bilirubin 0.20 AST 14 L ALT 23 Alkaline Phosphatase 49 Total Protein 5.9 L Albumin 3.1 L Globulin 2.8 Albumin/Globulin Ratio 1.1 04/08/22 22:00 WBC RBC Hgb Hct MCV MCH MCHC RDW Std Deviation RDW Coeff of Allan Plt Count MPV Immature Gran % (Auto) Neut % (Auto) Lymph % (Auto) Craven % (Auto) Eos % (Auto) Baso % (Auto) Absolute Neuts (auto) Absolute Lymphs (auto) Nucleated RBC % Diff Path Review Platelet Estimate RBC Morphology Hypochromasia Anisocytosis PT INR APTT Sodium Potassium Chloride Carbon Dioxide Anion Gap BUN Creatinine Estim Creat Clear Calc Est GFR (MDRD) Af Amer Est GFR (MDRD) Non-Af BUN/Creatinine Ratio Glucose Lactic Acid 1.0 Calcium Total Bilirubin AST ALT Alkaline Phosphatase Total Protein Albumin Globulin Albumin/Globulin Ratio Discharge Plan Triage Chief Complaint: GI Bleed ED Provider: Derrick Whitfield Dx/Rx/DC Orders Clinical Impression: GI bleed, Symptomatic anemia Prescriptions: No Action pantoprazole 40 MG tablet 40 mg PO DAILY Qty: 30 0RF iron aspgl,ps complex-vit C-sa 150 MG capsule 150 mg PO DAILYCM Qty: 30 0RF Primary Care Provider: JEROME MUNGUIA Referrals: [facility] Doctor,Out of [Non-Staff] - Disposition Disposition: Acute Care Hospital [facility]
[2022-04-08 22:35] LABS: Absolute Lymphocyte Count 1.53 X10^3/uL (0.83-4.51); Absolute Neutrophil Count 5.8 X10^3/uL (2.0-7.7); Basophil# 0.03 X10^3/uL; Basophil% 0.4 % (0-1); Eosinophil# 0.06 X10^3/uL; Eosinophils% 0.7 % (0-5); Hematocrit 17.2 % (37-47); Lymphocyte # 1.53 X10^3/ul (0.83-4.51); Lymphocyte % 18.8 % (19-41); Mean Corp Hgb Conc 30.2 g/dL (32-36); Mean Corpuscular Hgb 25.7 pg (27.0-32.0); Mean Corpuscular Volume 85.1 fL (81-99); Mean Platelet Vol. 10.6 fl (6.2-12.0); Monocyte% 7.4 % (0-10); NRBC Flagged by Analyzer 0 % (0-5); Neutrophil # 5.82 X10^3/uL (2.7-7.7); Neutrophil % 71.7 % (47-70); POSITIVE COUNT YES; Platelet Count 249 K/mm3 (150-450); RBC Distribution Width CV 16.9 % (11.6-14.6); RBC Distribution Width SD 50.7 fl (35.1-43.9); Red Blood Count 2.02 M/mm3 (4.2-5.4); White Blood Count 8.1 K/mm3 (4.4-11.0)
[2022-04-08 22:39] LABS: ALB/GLOB Ratio 1.1 RATIO (0.9-2.4); AST(SGOT) 14 U/L (15-37); Alanine Aminotransfer ALT/SGPT 23 U/L (13-56); Albumin, Serum 3.1 g/dL (3.2-5.0); Alkaline Phosphatase 49 U/L (45-117); Anion Gap 6 (5-15); BUN 18 mg/dL (7-18); BUN/Creat Ratio 21.5 RATIO (10-20); Calcium,Total 8.6 mg/dL (8.5-10.1); Chloride 107 mmol/L (98-107); Creatinine, Serum 0.84 mg/dL (0.55-1.02); EST Glomerular Filtration Rate 71 mL/min (>60); Est Glom Filt Rate - Afr Amer 86 mL/min (>60); Estimated Creatinine Clearance 50.74 ml/min; Globulin 2.8 g/dL (2.2-4.2); Glucose 117 mg/dL (74-106); Potassium 3.7 mmol/L (3.5-5.1); Protein, Total 5.9 g/dL (6.4-8.2); Sodium Level 136 mmol/L (136-145)
[2022-04-08 22:42] LABS: International Normalized Ratio 1.1
[2022-04-08 22:43] LABS: Partial Thromboplast Time 27.5 Seconds (24.1-36.2)
[2022-04-08 22:57] LABS: Hemoglobin 5.2 g/dL (12.0-15.0)
[2022-04-08 22:58] LABS: Differential Indicated SCAN CRITERIA MET
[2022-04-08 22:59] LABS: Anisocytosis 1+; Hypochromasia 1+; Platelet Estimate ADEQUATE (ADEQ); Red Cell Morphology N CHROM NORMAL (NORM C&C)
[2022-04-08 23:04] VITALS: BP 107/55; PULSE 84; RESP 16; O2SAT 99
--- NOTE | 2022-04-08 23:34 | PCM.HP.STD ---
HPI - General General Date of Admission: 04/08/22 Date of Service: 04/08/22 Chief Complaint: Dark stools, maroon colored stools, lightheadedness. HPI Narrative The patient is a 72 y/o F w/ PMHx: Chronic anemia/Fe Deficiency anemia, Hx GI bleed x ~ 4 episodes since 2016 with numerous endoscopies/colonoscopies without obvious source with intermittent transfusion needs, currently visiting friends, living in [place] currently who presents to the [facility] ED on 04/08/22 with history of onset approximately a little over a week prior dark appearing stools, potentially black in appearance with no associate abdominal pain or cramping nor any nausea or emesis reportedly ongoing for 48 hours which eventually then improved and slowed in her stools return to normal light brown but on Wednesday she noted having congestion and reported that she had read where a baby aspirin could alleviate this prompting her to take a baby aspirin following which she now had onset starting the evening prior to current presentation maroon appearing stools which have continued with last in a.m. on day of presentation with lightheadedness and fatigue although no chest pain or marked dyspnea but given ongoing symptoms prompted ED evaluation. In the ED included T98.1, heart rate 98, BP 176/48 initially with most recent repeat 107/55, respiratory rate 16, 100% on room air, CBC with WC 8.1, hemoglobin 5.2 with most recent noted prior to this 12/26/2018 hemoglobin 10.2, MCV 85.1, platelet 249 with increased immature granulocytes, unremarkable coags, CMP with glucose 117, lactate 1.0, hepatic profile not marked appearing otherwise, type and cross for 2 units initiated per ED physician. In the ED lengthy discussion with patient per ED physician and also with hospitalist as she declines at this time any GI consultation or consideration of endoscopy and is amenable to PRBC administration and hemoglobin trending. She does report that if her hemoglobin does trend down further or if she worsens she would be amenable at that time to GI involvement and potential endoscopies but she states that this is happened to many times and they have never found anything she prefers to only have blood and see if she is stable otherwise. [facility] Medical History (Updated 04/08/22 @ 23:[address] Dayanara Loaiza MD) Chronic anemia History of GI bleed Home Medications NK 04/08/22 [History Last Taken Unknown] Allergy/AdvReac Type Severity Reaction Status Date / Time No Known Allergies Allergy Verified 04/08/22 21:05 Family History (Updated 04/08/22 @ 23:[address] Dayanara Loaiza MD) Mother Heart disease Hypertension Father Cancer Surgical History (Updated 04/08/22 @ 23:[address] Dayanara Loaiza MD) H/O dilation and curettage Social History (Updated 04/08/22 @ 23:[address] Dayanara Loaiza MD) household members: other details: Rotates between homes, resides with her daughter currently she notes. Smoking Status: Never smoker alcohol intake: current alcohol intake frequency: holidays/special occasions only substance use type: does not use ROS ROS Narrative Admission Review of Systems: CONSTITUTIONAL: No weight loss, fever, chills, + weakness or fatigue. HEENT: Eyes: No visual loss, blurred vision, double vision or yellow sclerae. Ears, Nose, Throat: No hearing loss, sneezing, congestion, runny nose or sore throat. SKIN: No rash or itching, lesions, wounds. CARDIOVASCULAR: No chest pain, chest pressure or chest discomfort, palpitations, edema, orthopnea, syncopal events. RESPIRATORY: No shortness of breath, cough or sputum, wheezing, hemoptysis. GASTROINTESTINAL: + Black stools->maroon stools, No anorexia, nausea, vomiting or diarrhea, abdominal pain. GENITOURINARY: No dysuria, frequency, urgency or retention. NEUROLOGICAL: + Lightheadedness/dizziness. No headache, syncope, paralysis, ataxia, numbness or tingling in the extremities, focal weakness, change in bowel or bladder control, seizure. MUSCULOSKELETAL: No muscle, back pain, joint pain or stiffness. HEMATOLOGIC: + anemia, bleeding or bruising. LYMPHATICS: No enlarged nodes. No history of splenectomy. PSYCHIATRIC: No history of depression or anxiety. ENDOCRINOLOGIC: No reports of sweating, cold or heat intolerance. No polyuria or polydipsia. ALLERGIES: No history of asthma, hives, eczema or rhinitis. Vital Signs Vital Signs Vital Signs: 04/08/22 21:03 04/08/22 23:04 Temperature 98.1 F Temperature Source Temporal Pulse Rate 98 84 Respiratory Rate 16 16 Blood Pressure 176/48 H 107/55 L Blood Pressure Mean 90 72 Pulse Ox 100 99 Oxygen Delivery Method Room Air Room Air Weight Weight: 125 lb Body Mass Index (BMI) 21.4 Physical Exam Narrative Physical Examination: General: Awake, alert, oriented x 3 and cooperative, seated upright in the ED bed, fatigued but denies any acute complaints Skin: Pale color, normal turgor, no icterus, no cyanosis. HEENT: AT/NC, EOMI, PERRLA, MMM, no carotid bruits or JVD noted. Lungs: Mildly diminished, greater bases, appropriate effort, no rales, ronchi or wheezing. Heart: Currently regular rate and rhythm; no gallop, rub audible. Abdomen: Soft, NTTP, ND, hyperactive BS, no HSM. Extremities: No cyanosis, clubbing, or edema. Neurological: Patient awake, alert, oriented as noted, cognitive function intact; pupils equally reactive to light and accommodation, cranial nerves II-XII grossly normal, moving all 4 extremities, no focal deficits, strength mildly to moderately global decrease secondary to acute presentation. Psychiatric: Affect appears fatigued otherwise normal, no acute evidence of depressive or anxiety feelings. Results Lab / Micro Data Result Diagrams: 04/08/22 22:00 04/08/22 22:00 Labs: Laboratory Results - last 24 hr 04/08/22 22:00: WBC 8.1, RBC 2.02 L, Hgb 5.2 L*, Hct 17.2 L, MCV 85.1, MCH 25.7 L, MCHC 30.2 L, RDW Std Deviation 50.7 H, RDW Coeff of Allan 16.9 H, Plt Count 249, MPV 10.6, Immature Gran % (Auto) 1.000 H, Neut % (Auto) 71.7 H, Lymph % (Auto) 18.8 L, [place] % (Auto) 7.4, Eos % (Auto) 0.7, Baso % (Auto) 0.4, Absolute Neuts (auto) 5.8, Absolute Lymphs (auto) 1.53, Nucleated RBC % 0, Diff Path Review May , Platelet Estimate ADEQUATE, RBC Morphology N CHROM, Hypochromasia 1+, Anisocytosis 1+ 04/08/22 22:00: PT 14.0, INR 1.1, APTT 27.5 04/08/22 22:00: Sodium 136, Potassium 3.7, Chloride 107, Carbon Dioxide 23.0, Anion Gap 6, BUN 18, Creatinine 0.84, Estim Creat Clear Calc 50.74, Est GFR (MDRD) Af Amer 86, Est GFR (MDRD) Non-Af 71, BUN/Creatinine Ratio 21.5 H, Glucose 117 H, Calcium 8.6, Total Bilirubin 0.20, AST 14 L, ALT 23, Alkaline Phosphatase 49, Total Protein 5.9 L, Albumin 3.1 L, Globulin 2.8, Albumin/Globulin Ratio 1.1 04/08/22 22:00: Lactic Acid 1.0 Assessment & Plan Assessment/Plan (1) GI bleed: PLAN: Plan The patient is a 72 y/o F w/ PMHx: Chronic anemia/Fe Deficiency anemia, Hx GI bleed x ~ 4 episodes since 2015 with numerous endoscopies/colonoscopies without obvious source who presents to the [facility] ED on 04/08/22 with history of onset approximately a little over a week prior dark appearing stools, potentially black in appearance with no associate abdominal pain or cramping nor any nausea or emesis reportedly ongoing for 48 hours which eventually improved but on Wednesday she noted having congestion and reported taking baby aspirin following which she now had onset maroon appearing stools. #1. Acute GI Bleed w/ resultant Acute Blood Loss Anemia on Chronic Anemia/Fe deficiency anemia: Will admit to PCU given significant hemoglobin 5.2 upon presentation, maintain on IVFs, will continue with ED initiated 2 unit PRBC with planned CBC repeat following with further H&H trending pending repeat level and vital signs, will maintain on IV PPI, allow clears only and continue to monitor I's and O's. If patient does have significantly recurrent maroon or dark black stools or hemoglobin does not stabilize/improve with transfusion patient then noted amenability to involvement of gastroenterology at that time and potential endoscopies if appropriate. #2. Elevated BP without hypertensive diagnosis: Patient with transiently elevated BP in the ED, improved without intervention, continue to monitor, as needed IV hydralazine. #3. DVT prophylaxis: SCDs, defer chemoprophylaxis given acute presentation as noted #1. #4. CODE status: Patient DEEPA is her daughter and living will is currently in place. Discussed CODE status at length including difference between FULL code, DNR-CCA and DNR-CC status. Following discussions about the differences in these status, requested DNR-CCA, no intubation status. Advanced Care Planning Face to Face Time: 16 minutes. Charges/Coding Visit Charges Inpatient E&M: 38665 Init Hosp L2
[2022-04-08 23:41] VITALS: BP 107/55; PULSE 89; RESP 15; TEMP 37; O2SAT 100
[2022-04-09] VITALS (19 sets, daily range): BP systolic 115–150; BP diastolic 39–73; PULSE 69–89; RESP 16–20; TEMP 36.3–37.4; O2SAT 18–100; BMI 21.3
[2022-04-09] MEDS: 0.9% Normal Saline 1,000 ML 100 ML IV ×3 (01:29→17:28)
[2022-04-09] MEDS: 0.9% Saline Lock 10 ML Syringe IV (01:29)
--- NOTE | 2022-04-09 11:50 | CASEMGMT ---
RN IZZY FOSTER PARENT CM to room to meet with patient for initial transition planning/care coordination assessment. NADIYA MAGANA introduced self and role at [facility]. Pt voices understanding and consents to assessment at this time. Pt resting in bed in no distress at this time. Pt is A/O at this time and answers all questions appropriately. Care providers, pharmacy, and demographics verified/updated at this time. PCP: Dr Tom Pendleton in [place] Specialists: Pt states since COVID pandemic, has been going to a holistic doctor (Dr Shukla) @ [facility] in [place], [place] Preferred Pharmacy: [facility] Retail Insurance: [employer] Prescription Benefit: Yes Living Will/HPOA: Has LW and HPOA, who is her dtr, Jordyn. She states her son, Moreno is also listed as POA. Pt made aware AD from [place] do not apply in [place] and made aware she can complete AD for [place], if she wishes. She declines at this time, but is aware can complete as an OP, if she wishes to do so in the future. She has SS Rac card/contact info. LNOK: DtrJordyn. Son, Moreno Living Arrangements: Lives w/her Jordyn vargas, in 2-story home. Independent w/ADL's and IADL'S. Transportation: Pt states drives self and states no transportation concerns at this time. DME: Denies using any DME and denies needs. HHC/SNF: No hx of either. No needs identified. Pt wishes to return home and states has no concerns with going home at time of discharge. CM to follow for anydischarge planning/needs. Pt voices no concerns/needs at this time. Advised pt to ask for CM if any questions/concerns/needs arise. Voices understanding. PLAN: Home Kendell GAINES RN, CM
[2022-04-09 11:53] LABS: Absolute Lymphocyte Count 1.69 X10^3/uL (0.83-4.51); Absolute Neutrophil Count 3.6 X10^3/uL (2.0-7.7); Basophil# 0.03 X10^3/uL; Basophil% 0.5 % (0-1); Eosinophil# 0.08 X10^3/uL; Eosinophils% 1.3 % (0-5); Hematocrit 25.3 % (37-47); Lymphocyte # 1.69 X10^3/ul (0.83-4.51); Lymphocyte % 28.5 % (19-41); Mean Corp Hgb Conc 31.6 g/dL (32-36); Mean Corpuscular Hgb 27.7 pg (27.0-32.0); Mean Corpuscular Volume 87.5 fL (81-99); Mean Platelet Vol. 10.1 fl (6.2-12.0); Monocyte# 0.51 X10^3/uL; Monocyte% 8.6 % (0-10); NRBC Flagged by Analyzer 0 % (0-5); Neutrophil # 3.59 X10^3/uL (2.7-7.7); Neutrophil % 60.6 % (47-70); Platelet Count 218 K/mm3 (150-450); RBC Distribution Width CV 15.9 % (11.6-14.6); Red Blood Count 2.89 M/mm3 (4.2-5.4); White Blood Count 5.9 K/mm3 (4.4-11.0)
--- NOTE | 2022-04-09 12:06 | PN.HOSP_ITS ---
Subjective Subjective Follow-up on acute GI bleed: Patient was seen and examined. She had 1 maroon-colored stool. She denied dizziness or palpitation. She feels a little bit improved. She is agreeable for GI consult. She expressed reluctance in getting colonoscopy or endoscopy. She agreed that we needed to get to the source of her bleeding. Objective Data Objective Data Vital Signs: Vital Signs Temp Pulse Resp BP Pulse Ox O2 Del Method 97.3 F L 75 20 H 124/62 H 99 Room Air 04/09/22 08:45 04/09/22 08:45 04/09/22 08:45 04/09/22 08:45 04/09/22 08:45 04/09/22 10:25 Oxygen Delivery Method Room Air Weight: 56.3 kg Body Mass Index (BMI) 21.3 Intake & Output: Intake and Output for Last 24 Hours 04/07/22 04/08/22 04/09/22 23:59 23:59 23:59 Intake Total 1893.33 / 1893.33 Balance 1893.33 / 1893.33 Lab / Micro Data Result Diagrams: 04/09/22 11:45 04/09/22 11:45 Labs: Laboratory Results - last 24 hr 04/08/22 22:00: WBC 8.1, RBC 2.02 L, Hgb 5.2 L*, Hct 17.2 L, MCV 85.1, MCH 25.7 L, MCHC 30.2 L, RDW Std Deviation 50.7 H, RDW Coeff of Allan 16.9 H, Plt Count 249, MPV 10.6, Immature Gran % (Auto) 1.000 H, Neut % (Auto) 71.7 H, Lymph % (Auto) 18.8 L, [place] % (Auto) 7.4, Eos % (Auto) 0.7, Baso % (Auto) 0.4, Absolute Neuts (auto) 5.8, Absolute Lymphs (auto) 1.53, Nucleated RBC % 0, Diff Path Review October, Platelet Estimate ADEQUATE, RBC Morphology N CHROM, Hypochromasia 1+, Anisocytosis 1+ 04/08/22 22:00: PT 14.0, INR 1.1, APTT 27.5 04/08/22 22:00: Sodium 136, Potassium 3.7, Chloride 107, Carbon Dioxide 23.0, Anion Gap 6, BUN 18, Creatinine 0.84, Estim Creat Clear Calc 50.74, Est GFR (MDRD) Af Amer 86, Est GFR (MDRD) Non-Af 71, BUN/Creatinine Ratio 21.5 H, Glucose 117 H, Calcium 8.6, Total Bilirubin 0.20, AST 14 L, ALT 23, Alkaline Phosphatase 49, Total Protein 5.9 L, Albumin 3.1 L, Globulin 2.8, Albumin/Globulin Ratio 1.1 04/08/22 22:00: Lactic Acid 1.0 04/08/22 23:29: Blood Type O POSITIVE, Antibody Screen NEGATIVE, Crossmatch See Detail 04/09/22 11:45: WBC 5.9, RBC 2.89 L, Hgb 8.0 L, Hct 25.3 L, MCV 87.5, MCH 27.7, MCHC 31.6 L, RDW Std Deviation 50.0 H, RDW Coeff of Allan 15.9 H, Plt Count 218, MPV 10.1, Immature Gran % (Auto) 0.500, Neut % (Auto) 60.6, Lymph % (Auto) 28.5, [place] % (Auto) 8.6, Eos % (Auto) 1.3, Baso % (Auto) 0.5, Absolute Neuts (auto) 3.6, Absolute Lymphs (auto) 1.69, Nucleated RBC % 0 Physical Exam Narrative Physical exam: General: Alert, Oriented x3, Cooperative, No apparent distress HEENT: Atraumatic Oral: Moist Mucosa Neck: Supple Lungs: Clear to auscultation Cardiovascular: HS I+II, regular, no murmurs Abdomen: Bowel Sounds Present, Soft, Non Tender Extremities: No edema Skin: No rashes, No breakdown Neurological: Grossly intact Psych/Mental Status: Appropriate Assessment & Plan Assessment/Plan (1) GI bleed: (2) Symptomatic anemia: PLAN: Plan 1. GI bleed, unclear etiology, Patient is agreeable to GI consult. Continue pantoprazole IV twice daily 2. Acute blood loss anemia secondary to #1 Patient admitted hemoglobin of 5.2 Status post 2 units of packed RBCs Hemoglobin today is 8.0 We will trend, repeat blood work in a.m. 3. DVT PPx- SCDs Charges/Coding Visit Charges Inpatient E&M: 01177 Subs Hosp L2
[2022-04-09 12:45] LABS: AST(SGOT) 15 U/L (15-37); Alanine Aminotransfer ALT/SGPT 22 U/L (13-56); Albumin, Serum 2.8 g/dL (3.2-5.0); Alkaline Phosphatase 46 U/L (45-117); Anion Gap 5 (5-15); BUN 12 mg/dL (7-18); Calcium,Total 8.1 mg/dL (8.5-10.1); Chloride 114 mmol/L (98-107); EST Glomerular Filtration Rate 74 mL/min (>60); Est Glom Filt Rate - Afr Amer 90 mL/min (>60); Estimated Creatinine Clearance 53.28 ml/min; Globulin 2.7 g/dL (2.2-4.2); Glucose 99 mg/dL (74-106); Protein, Total 5.5 g/dL (6.4-8.2); Sodium Level 142 mmol/L (136-145)
[2022-04-09 13:36] LABS: Pathologist Review Reviewed
[2022-04-09 17:16] LABS: Absolute Lymphocyte Count 1.75 X10^3/uL (0.83-4.51); Absolute Neutrophil Count 3.4 X10^3/uL (2.0-7.7); Basophil# 0.03 X10^3/uL; Basophil% 0.5 % (0-1); Eosinophil# 0.11 X10^3/uL; Eosinophils% 1.9 % (0-5); Hematocrit 24.5 % (37-47); Hemoglobin 7.9 g/dL (12.0-15.0); Lymphocyte # 1.75 X10^3/ul (0.83-4.51); Lymphocyte % 30.2 % (19-41); Mean Corp Hgb Conc 32.2 g/dL (32-36); Mean Corpuscular Hgb 28.2 pg (27.0-32.0); Mean Corpuscular Volume 87.5 fL (81-99); Mean Platelet Vol. 9.9 fl (6.2-12.0); Monocyte# 0.54 X10^3/uL; Monocyte% 9.3 % (0-10); NRBC Flagged by Analyzer 0 % (0-5); Neutrophil # 3.36 X10^3/uL (2.7-7.7); Neutrophil % 57.9 % (47-70); Platelet Count 217 K/mm3 (150-450); RBC Distribution Width CV 16.2 % (11.6-14.6); RBC Distribution Width SD 50.2 fl (35.1-43.9); White Blood Count 5.8 K/mm3 (4.4-11.0)
[2022-04-09 17:57] LABS: ALB/GLOB Ratio 1.1 RATIO (0.9-2.4); AST(SGOT) 10 U/L (15-37); Alanine Aminotransfer ALT/SGPT 20 U/L (13-56); Albumin, Serum 2.9 g/dL (3.2-5.0); Alkaline Phosphatase 47 U/L (45-117); Anion Gap 5 (5-15); BUN 11 mg/dL (7-18); BUN/Creat Ratio 13.5 RATIO (10-20); Calcium,Total 8.4 mg/dL (8.5-10.1); Chloride 116 mmol/L (98-107); Creatinine, Serum 0.81 mg/dL (0.55-1.02); EST Glomerular Filtration Rate 73 mL/min (>60); Est Glom Filt Rate - Afr Amer 88 mL/min (>60); Estimated Creatinine Clearance 52.62 ml/min; Globulin 2.7 g/dL (2.2-4.2); Glucose 95 mg/dL (74-106); Potassium 4.6 mmol/L (3.5-5.1); Protein, Total 5.6 g/dL (6.4-8.2); Sodium Level 144 mmol/L (136-145)
[2022-04-10] VITALS (9 sets, daily range): BP systolic 107–141; BP diastolic 57–73; PULSE 65–87; RESP 18; TEMP 36–36.6; O2SAT 95–100
[2022-04-10] MEDS: 0.9% Normal Saline 1,000 ML 100 ML IV ×2 (02:53→13:08)
[2022-04-10 07:09] LABS: Absolute Lymphocyte Count 1.35 X10^3/uL (0.83-4.51); Absolute Neutrophil Count 2.6 X10^3/uL (2.0-7.7); Basophil# 0.02 X10^3/uL; Basophil% 0.4 % (0-1); Eosinophil# 0.16 X10^3/uL; Eosinophils% 3.5 % (0-5); Hemoglobin 7.3 g/dL (12.0-15.0); Lymphocyte # 1.35 X10^3/ul (0.83-4.51); Lymphocyte % 29.2 % (19-41); Mean Corp Hgb Conc 31.7 g/dL (32-36); Mean Corpuscular Volume 88.1 fL (81-99); Mean Platelet Vol. 10.2 fl (6.2-12.0); Monocyte# 0.49 X10^3/uL; Monocyte% 10.6 % (0-10); NRBC Flagged by Analyzer 0 % (0-5); Neutrophil % 56.1 % (47-70); Platelet Count 190 K/mm3 (150-450); RBC Distribution Width CV 16.3 % (11.6-14.6); RBC Distribution Width SD 50.1 fl (35.1-43.9); Red Blood Count 2.61 M/mm3 (4.2-5.4); White Blood Count 4.6 K/mm3 (4.4-11.0)
--- NOTE | 2022-04-10 11:51 | CASEMGMT ---
Per admission questions patient has a Healthcare Power of Stitch Burnisher and a Healthcare Living Will. Patient is from [place] so she is unable to provide a copy. Cheyenne PICKETT
--- NOTE | 2022-04-10 12:03 | CT_ITS ---
STUDY: CTA ABDOMEN AND PELVIS WITH CONTRAST REASON FOR EXAM: Female, 72 years old. gi bleed, CHRONIC ANEMIA RADIATION DOSAGE (If Supplied By Facility): CTDIvol = ( 12.54 ) mGy, DLP = ( 582.56 ) mGycm TECHNIQUE: Transaxial images were obtained from the dome of the diaphragm to the symphysis pubis without oral contrast. IV 75mL Isovue-370 was administered. Sagittal and coronal images were reconstructed. Individualized dose optimization techniques were used for this CT. COMPARISON: None. FINDINGS: The visualized lung bases are unremarkable. The visualized portions of the heart are within normal limits. There is decreased attenuation of the liver consistent with steatosis. Normal gallbladder and extrahepatic biliary system. Normal spleen. Normal pancreas. There is symmetric enlargement of the adrenal glands suggesting adrenal hyperplasia. Normal right kidney. Normal left kidney. Normal visualized stomach. Normal small intestine. There appears to be 4. Centimeter by 5.9 cm x 4.9 cm solid mass with vascularity in the right hemipelvis extending into the lower aspect. This causes the rectum to be displaced towards the left side. This may represent either a uterine fibroid versus possible mass arising from the colon. The appendix is visualized and appears normal. Normal abdominal aorta. Normal inferior vena cava. Normal retroperitoneum. Normal urinary bladder. There is a small umbilical hernia containing fat. Normal osseous structures. CT/CT ANGIO ABD&PEL W/O&W/DYE IMPRESSION: 4.97 x 5.97 x 4.9 semisolid mass with increased vascularity in the right hemipelvis displacing the rectum towards the left side of the midline. This may represent either an ovarian neoplasm versus a pedunculated uterine fibroid or possible colonic mass. Correlation with ultrasound is recommended. Electronically Signed: Doc Bellamy MD at 13:11 EDT ,
--- NOTE | 2022-04-10 12:19 | PN.HOSP_ITS ---
Subjective Subjective Follow-up on acute GI bleed: Patient was seen and examined.?She has not had any bloody stools since yesterday. She has been passing gas. She is on clear liquid diet. Objective Data Objective Data Vital Signs: Vital Signs Temp Pulse Resp BP Pulse Ox O2 Del Method 97.4 F L 80 18 130/68 H 100 Room Air 04/10/22 09:00 04/10/22 09:00 04/10/22 09:00 04/10/22 09:00 04/10/22 09:00 04/10/22 09:52 Oxygen Delivery Method Room Air Weight: 57.7 kg Body Mass Index (BMI) 21.3 Intake & Output: Intake and Output for Last 24 Hours 04/08/22 04/09/22 04/10/22 23:59 23:59 23:59 Intake Total 3828.33 / 3828.33 2245.00 / 2245.00 Balance 3828.33 / 3828.33 2245.00 / 2245.00 Lab / Micro Data Result Diagrams: 04/10/22 12:30 04/09/22 17:00 Labs: Laboratory Results - last 24 hr 04/08/22 22:00: Diff Path Review Reviewed 04/09/22 11:45: Sodium 142, Potassium 4.0, Chloride 114 H, Carbon Dioxide 23.0, Anion Gap 5, BUN 12, Creatinine 0.80, Estim Creat Clear Calc 53.28, Est GFR (MDRD) Af Amer 90, Est GFR (MDRD) Non-Af 74, BUN/Creatinine Ratio 15.0, Glucose 99, Calcium 8.1 L, Total Bilirubin 0.30, AST 15, ALT 22, Alkaline Phosphatase 46, Total Protein 5.5 L, Albumin 2.8 L, Globulin 2.7, Albumin/Globulin Ratio 1.0 04/09/22 17:00: WBC 5.8, RBC 2.80 L, Hgb 7.9 L, Hct 24.5 L, MCV 87.5, MCH 28.2, MCHC 32.2, RDW Std Deviation 50.2 H, RDW Coeff of Allan 16.2 H, Plt Count 217, MPV 9.9, Immature Gran % (Auto) 0.200, Neut % (Auto) 57.9, Lymph % (Auto) 30.2, [place] % (Auto) 9.3, Eos % (Auto) 1.9, Baso % (Auto) 0.5, Absolute Neuts (auto) 3.4, Absolute Lymphs (auto) 1.75, Nucleated RBC % 0 04/09/22 17:00: Sodium 144, Potassium 4.6, Chloride 116 H, Carbon Dioxide 23.0, Anion Gap 5, BUN 11, Creatinine 0.81, Estim Creat Clear Calc 52.62, Est GFR (MDRD) Af Amer 88, Est GFR (MDRD) Non-Af 73, BUN/Creatinine Ratio 13.5, Glucose 95, Calcium 8.4 L, Total Bilirubin 0.50, AST 10 L, ALT 20, Alkaline Phosphatase 47, Total Protein 5.6 L, Albumin 2.9 L, Globulin 2.7, Albumin/Globulin Ratio 1.1 04/10/22 06:15: WBC 4.6, RBC 2.61 L, Hgb 7.3 L, Hct 23.0 L, MCV 88.1, MCH 28.0, MCHC 31.7 L, RDW Std Deviation 50.1 H, RDW Coeff of Allan 16.3 H, Plt Count 190, MPV 10.2, Immature Gran % (Auto) 0.200, Neut % (Auto) 56.1, Lymph % (Auto) 29.2, [place] % (Auto) 10.6 H, Eos % (Auto) 3.5, Baso % (Auto) 0.4, Absolute Neuts (auto) 2.6, Absolute Lymphs (auto) 1.35, Nucleated RBC % 0 Physical Exam Narrative Physical exam: General: Alert, Oriented x3, Cooperative, No apparent distress HEENT: Atraumatic Oral: Moist Mucosa Neck: Supple Lungs: Clear to auscultation Cardiovascular: HS I+II, regular, no murmurs Abdomen: Bowel Sounds Present, Soft, Non Tender Extremities: No edema Skin: No rashes, No breakdown Neurological: Grossly intact Psych/Mental Status: Appropriate Assessment & Plan Assessment/Plan (1) GI bleed: (2) Symptomatic anemia: PLAN: Plan 1. Acute GI bleed, unclear etiology, GI consulted, Continue pantoprazole IV twice daily 2. Acute blood loss anemia/iron deficiency anemia secondary to #1 Patient will admitted hemoglobin of 5.2 Status post 2 units of packed RBCs Hemoglobin today is 7.8 Will give IV Venofer x3 days Repeat blood work in a.m. 3. Abnormal CT of the abdomen/pelvis -4.97 x 5.97 x 4.9 semisolid mass with increased vascularity of the right hemipelvis displacing the rectum toward the left side of the low midline We will get a transvaginal ultrasound stat 4. DVT PPx- SCDs Charges/Coding Visit Charges Inpatient E&M: 88686 Subs Hosp L3
[2022-04-10 12:23] LABS: Platelet Count 199 K/mm3 (150-450); RET-HE 28.5 pg (30-35); Reticulocyte Count 6.26 % (0.5-1.5)
[2022-04-10 12:36] LABS: Ferritin 21 ng/mL (8-252); Iron 15 ug/dL (50-170); Iron Binding Capacity,Total 318 ug/dL (250-450); PERCENT IRON SATURATION 4.7 % (15.0-55.0)
[2022-04-10 12:48] LABS: Hematocrit 24.4 % (37-47); Hemoglobin 7.8 g/dL (12.0-15.0)
--- NOTE | 2022-04-10 16:55 | US_ITS ---
STUDY: ULTRASOUND TRANSVAGINAL CLINICAL: Female, 72 years old. Pelvic mass0 on CT TECHNIQUE: Transvaginal COMPARISON: CT earlier today FINDINGS: Normal uterine size measuring 4.5 x 3.9 x 2.2 cm in maximal craniocaudal dimension. There are no myometrial masses. Normal endometrial thickness measuring 3 mm. There are no endometrial masses, and there is no fluid in the endometrial cavity. Normal uterine cervix. Enlarged right ovary, measuring 7.0 x 4.8 x 6.0 cm. Heterogeneous solid mass of the right ovary worrisome for tumor.. The left ovary is nonvisualized.. There is a small amount of free fluid in the pelvis. Polycystic ovary disease: No. US/Transvaginal Non- IMPRESSION: 7 cm heterogeneous solid mass in the right ovary worrisome for tumor with the small amount of free fluid. Electronically Signed: Ambrosio Gunn MD at 18:09 EDT ,
--- NOTE | 2022-04-10 19:38 | PCM.CONS.GEN ---
Assessment & Plan Assessment/Plan (1) GI bleed: PLAN: The plan originally was to get a CT angio in order to see if she had any active bleeding. The CT angio I discovered a large pelvic mass likely ovarian in origin. She had a transvaginal ultrasound which had shown a right ovarian mass. I ordered a Ca1 25. I think this is a likely etiology of her acute on chronic anemia. She should have a CRACKER AND COOKIE MACHINE OPERATOR consult. (2) Symptomatic anemia: HPI Consult Data Date of Consult: 04/10/22 HPI Narrative HPI Narrative: BELLE GOOD, is a 72 F who presented due to GI bleed.? Patient does have a past medical history for a GI bleed x2.? Back in 2015 while she is at home in [place] she needed 3 units packed red blood cells also had an EGD and colonoscopy as well as capsule endoscopy which were all negative per the patient.? Last December patient was in [place] and she had a small amount of dark red blood per rectum she did go into did not need any transfusions.? She did choose to do an outpatient work-up back at home.? A week later she had an upper endoscopy which did not show anything.? She was told may be avoid harder foods or nuts that she may have scratched the lining of her esophagus.? Patient denies any history of heartburn reflux or abdominal pain in the past.? Patient states that on December 22 she felt like her stomach was heavy denies any pain so she took active charcoal x2.? Patient did have a small bowel movement which was darker but also had a small amount of dark blood as well.? Patient decided to try to to rest her stomach and not eat as much that day.? The next morning she had the same small bowel movement which was darker along with a small amount of dark red blood.? She did fast that day. ? Yesterday she had a little bit of broth and ice cream and at 6 PM she did have a large amount of diarrhea which was black/maroon per patient and that was her last bowel movement.? Patient denied any abdominal pain yesterday or today.?? [facility] Medical History (Updated 04/08/22 @ 23:[address] Dayanara Loaiza MD) Chronic anemia History of GI bleed Home Medications NK 04/08/22 [History Last Taken Unknown] Allergy/AdvReac Type Severity Reaction Status Date / Time No Known Allergies Allergy Verified 04/08/22 21:05 Family History (Updated 04/08/22 @ 23:[address] Dayanara Loaiza MD) Mother Heart disease Hypertension Father Cancer Surgical History (Updated 04/08/22 @ 23:[address] Dayanara Loaiza MD) H/O dilation and curettage Social History (Updated 04/08/22 @ 23:[address] Dayanara Laoiza MD) household members: other details: Rotates between homes, resides with her daughter currently she notes. Smoking Status: Never smoker alcohol intake: current alcohol intake frequency: holidays/special occasions only substance use type: does not use ROS ROS Narrative Admission Review of Systems: CONSTITUTIONAL: No weight loss, fever, chills, + weakness or fatigue. HEENT: Eyes: No visual loss, blurred vision, double vision or yellow sclerae. Ears, Nose, Throat: No hearing loss, sneezing, congestion, runny nose or sore throat. SKIN: No rash or itching, lesions, wounds. CARDIOVASCULAR: No chest pain, chest pressure or chest discomfort, palpitations, edema, orthopnea, syncopal events. RESPIRATORY: No shortness of breath, cough or sputum, wheezing, hemoptysis. GASTROINTESTINAL: + Black stools->maroon stools, No anorexia, nausea, vomiting or diarrhea, abdominal pain. GENITOURINARY: No dysuria, frequency, urgency or retention. NEUROLOGICAL: + Lightheadedness/dizziness. No headache, syncope, paralysis, ataxia, numbness or tingling in the extremities, focal weakness, change in bowel or bladder control, seizure. MUSCULOSKELETAL: No muscle, back pain, joint pain or stiffness. HEMATOLOGIC: + anemia, bleeding or bruising. LYMPHATICS: No enlarged nodes. No history of splenectomy. PSYCHIATRIC: No history of depression or anxiety. ENDOCRINOLOGIC: No reports of sweating, cold or heat intolerance. No polyuria or polydipsia. ALLERGIES: No history of asthma, hives, eczema or rhinitis. Physical Exam Narrative Physical exam: General: Alert, Oriented x3, Cooperative, No apparent distress HEENT: Atraumatic Oral: Moist Mucosa Neck: Supple Lungs: Clear to auscultation Cardiovascular: HS I+II, regular, no murmurs Abdomen: Bowel Sounds Present, Soft, Non Tender Extremities: No edema Skin: No rashes, No breakdown Neurological: Grossly intact Psych/Mental Status: Appropriate Lab / Micro Data Result Diagrams: 04/10/22 12:30 04/09/22 17:00 Labs: Laboratory Results - last 24 hr 04/10/22 06:15: WBC 4.6, RBC 2.61 L, Hgb 7.3 L, Hct 23.0 L, MCV 88.1, MCH 28.0, MCHC 31.7 L, RDW Std Deviation 50.1 H, RDW Coeff of Allan 16.3 H, Plt Count 190, MPV 10.2, Immature Gran % (Auto) 0.200, Neut % (Auto) 56.1, Lymph % (Auto) 29.2, [place] % (Auto) 10.6 H, Eos % (Auto) 3.5, Baso % (Auto) 0.4, Absolute Neuts (auto) 2.6, Absolute Lymphs (auto) 1.35, Nucleated RBC % 0 04/10/22 06:15: Retic Count 6.26 H, Immature Retic Fraction 34.10 H, Retic Hgb Equivalent 28.5 L 04/10/22 06:15: Iron 15 L, TIBC 318, Iron Saturation 4.7 L, Ferritin 21 04/10/22 12:30: Direct Antiglob Test NEG w/POLYSPECIFIC 04/10/22 12:30: Hgb 7.8 L, Hct 24.4 L Radiology Impression Abdomen/Pelvis CTA 04/10/22 12:03 IMPRESSION: 4.97 x 5.97 x 4.9 semisolid mass with increased vascularity in the right hemipelvis displacing the rectum towards the left side of the midline. This may represent either an ovarian neoplasm versus a pedunculated uterine fibroid or possible colonic mass. Correlation with ultrasound is recommended. Electronically Signed: Doc Bellamy MD at 13:11 EDT , Transvaginal US 04/10/22 16:55 IMPRESSION: 7 cm heterogeneous solid mass in the right ovary worrisome for tumor with the small amount of free fluid. Electronically Signed: Ambrosio Gunn MD at 18:09 EDT , Charges/Coding Visit Charges Inpatient E&M: 50496 Init Hosp L2
[2022-04-11] VITALS (15 sets, daily range): BP systolic 111–138; BP diastolic 52–66; PULSE 68–100; RESP 17–18; TEMP 36.5–36.9; O2SAT 96–100
[2022-04-11] MEDS: 0.9% Normal Saline 1,000 ML 100 ML IV ×2 (00:13→16:49)
[2022-04-11 06:58] LABS: Absolute Lymphocyte Count 1.08 X10^3/uL (0.83-4.51); Absolute Neutrophil Count 3.3 X10^3/uL (2.0-7.7); Basophil# 0.02 X10^3/uL; Basophil% 0.4 % (0-1); Eosinophil# 0.14 X10^3/uL; Eosinophils% 2.8 % (0-5); Hematocrit 22.9 % (37-47); Lymphocyte # 1.08 X10^3/ul (0.83-4.51); Lymphocyte % 21.6 % (19-41); Mean Corp Hgb Conc 30.6 g/dL (32-36); Mean Corpuscular Hgb 27.5 pg (27.0-32.0); Mean Corpuscular Volume 89.8 fL (81-99); Mean Platelet Vol. 10.4 fl (6.2-12.0); Monocyte# 0.47 X10^3/uL; Monocyte% 9.4 % (0-10); NRBC Flagged by Analyzer 0 % (0-5); Neutrophil # 3.26 X10^3/uL (2.7-7.7); Neutrophil % 65.4 % (47-70); Platelet Count 225 K/mm3 (150-450); RBC Distribution Width CV 16.9 % (11.6-14.6); RBC Distribution Width SD 54.9 fl (35.1-43.9); Red Blood Count 2.55 M/mm3 (4.2-5.4)
[2022-04-11 07:19] LABS: ALB/GLOB Ratio 1.1 RATIO (0.9-2.4); AST(SGOT) 15 U/L (15-37); Alanine Aminotransfer ALT/SGPT 19 U/L (13-56); Albumin, Serum 2.6 g/dL (3.2-5.0); Alkaline Phosphatase 41 U/L (45-117); Anion Gap 6 (5-15); BUN 11 mg/dL (7-18); BUN/Creat Ratio 15.7 RATIO (10-20); Calcium,Total 7.9 mg/dL (8.5-10.1); Chloride 115 mmol/L (98-107); EST Glomerular Filtration Rate 87 mL/min (>60); Est Glom Filt Rate - Afr Amer 105 mL/min (>60); Estimated Creatinine Clearance 42.62 ml/min; Globulin 2.4 g/dL (2.2-4.2); Glucose 89 mg/dL (74-106); Potassium 3.7 mmol/L (3.5-5.1); Sodium Level 143 mmol/L (136-145)
--- NOTE | 2022-04-11 11:32 | PCM.PN.HOSP ---
Subjective Subjective Follow-up on acute GI bleed/pelvic mass/acute bilateral PE/suspected metastases: Patient was seen and examined. Patient denied any more hematochezia. Transvaginal ultrasound had shown a right ovarian mass displacing the rectum. Gynecology consulted, recommended transfer to [facility] for REEL BLADE BENDER FURNACE TENDER oncology evaluation. CT of the chest with contrast showed possible metastasis, mediastinal lymphadenopathy, right-sided PE. Objective Data Objective Data Vital Signs: Vital Signs Temp Pulse Resp BP Pulse Ox O2 Del Method 97.7 F L 100 18 116/66 99 Room Air 04/11/22 09:35 04/11/22 11:00 04/11/22 09:35 04/11/22 09:35 04/11/22 09:35 04/11/22 09:35 Oxygen Delivery Method Room Air Weight: 57.5 kg Body Mass Index (BMI) 21.3 Intake & Output: Intake and Output for Last 24 Hours 04/09/22 04/10/22 04/11/22 23:59 23:59 23:59 Intake Total 3828.33 / 3828.33 3590.00 / 3590.00 1421.67 / 1421.67 Balance 3828.33 / 3828.33 3590.00 / 3590.00 1421.67 / 1421.67 Lab / Micro Data Result Diagrams: 04/11/22 05:40 04/11/22 05:40 Labs: Laboratory Results - last 24 hr 04/08/22 23:29: Crossmatch See Detail 04/10/22 06:15: Retic Count 6.26 H, Immature Retic Fraction 34.10 H, Retic Hgb Equivalent 28.5 L 04/10/22 06:15: Iron 15 L, TIBC 318, Iron Saturation 4.7 L, Ferritin 21 04/10/22 12:30: Direct Antiglob Test NEG w/POLYSPECIFIC 04/10/22 12:30: Hgb 7.8 L, Hct 24.4 L 04/11/22 05:40: WBC 5.0, RBC 2.55 L, Hgb 7.0 L, Hct 22.9 L, MCV 89.8, MCH 27.5, MCHC 30.6 L, RDW Std Deviation 54.9 H, RDW Coeff of Allan 16.9 H, Plt Count 225, MPV 10.4, Immature Gran % (Auto) 0.400, Neut % (Auto) 65.4, Lymph % (Auto) 21.6, [place] % (Auto) 9.4, Eos % (Auto) 2.8, Baso % (Auto) 0.4, Absolute Neuts (auto) 3.3, Absolute Lymphs (auto) 1.08, Nucleated RBC % 0 04/11/22 05:40: Sodium 143, Potassium 3.7, Chloride 115 H, Carbon Dioxide 22.0, Anion Gap 6, BUN 11, Creatinine 0.70, Estim Creat Clear Calc 42.62, Est GFR (MDRD) Af Amer 105, Est GFR (MDRD) Non-Af 87, BUN/Creatinine Ratio 15.7, Glucose 89, Calcium 7.9 L, Total Bilirubin 0.30, AST 15, ALT 19, Alkaline Phosphatase 41 L, Total Protein 5.0 L, Albumin 2.6 L, Globulin 2.4, Albumin/Globulin Ratio 1.1 Radiography Diagnostic Testing: Radiology Impression Abdomen/Pelvis CTA 04/10/22 12:03 IMPRESSION: 4.97 x 5.97 x 4.9 semisolid mass with increased vascularity in the right hemipelvis displacing the rectum towards the left side of the midline. This may represent either an ovarian neoplasm versus a pedunculated uterine fibroid or possible colonic mass. Correlation with ultrasound is recommended. Electronically Signed: Doc Bellamy MD at 13:11 EDT , Transvaginal US 04/10/22 16:55 IMPRESSION: 7 cm heterogeneous solid mass in the right ovary worrisome for tumor with the small amount of free fluid. Electronically Signed: Ambrosio Gunn MD at 18:09 EDT , Physical Exam Narrative Physical exam: General: Alert, Oriented x3, Cooperative, No apparent distress HEENT: Atraumatic Oral: Moist Mucosa Neck: Supple Lungs: Clear to auscultation Cardiovascular: HS I+II, regular, no murmurs Abdomen: Bowel Sounds Present, Soft, Non Tender Extremities: No edema Skin: No rashes, No breakdown Neurological: Grossly intact Psych/Mental Status: Appropriate Assessment & Plan Assessment/Plan (1) GI bleed: (2) Symptomatic anemia: PLAN: Plan 1. Acute GI bleed, unclear etiology, GI consulted, Continue pantoprazole IV twice daily 2. Acute blood loss anemia/iron deficiency anemia secondary to #1 Patient was admitted hemoglobin of 5.2 Status post 2 units of packed RBCs and IV venofer Hemoglobin today is 7.0 Will transfuse another 1 unit of packed RBC 3. Pelvic mass, seen on CT of the abdomen pelvis with contrast, concerning for possible malignancy CT of the chest with contrast showed possible metastasis Patient will be transferred to [facility] 4. Acute right-sided PE, found incidentally on CT of the chest with contrast, will start on heparin drip, monitor H&H 5. DVT PPx-Heparin drip Charges/Coding Visit Charges Inpatient E&M: 54064 Subs Hosp L3
--- NOTE | 2022-04-11 11:45 | PN_ITS ---
Progress Note Chief complaint: Weakness History present illness: 72-year-old arrived to [facility] ER with weakness and dark stools. Patient felt extremely weak has had a history of dark stools and GI bleed in the past. Obstetric history: status post vaginal deliveries. After second vaginal delivery at 26 years old patient with hemorrhage and had D&C, after procedure never had a menstrual cycle again. Did note some hot flashes at night and questionable early menopause. No history of hormone replacement therapy. Past medical history: History of GI bleed, chronic anemia Medications: None Past surgical history: D&C Allergies: No known drug allergies Social history: Denies smoking, alcohol, drug use Review of systems: Besides above pertinent positives a full review of systems was performed and found to be negative Physical exam: Vitals: Blood pressure 111/52 pulse 81 respiratory rate 18 SPO2 98% on room air General: Normal-appearing no acute distress HEENT: Normocephalic/atraumatic no cervical of adenopathy Cardiac/respiratory: No accessory muscles, nonlabored breathing Abdomen: Right lower quadrant with palpable firm mass, nontympanic, no fluid shifts. Mildly distended. Nontendre, No rebound tenderness or guarding Extremities: No peripheral edema normal peripheral pulses Psych: Normal affect normal demeanor nonpressured speech Current labs: White blood cell count 5 hemoglobin 7 hematocrit 22.9% platelets 225. Sodium 143 potassium 3.7 creatinine 0.7 BUN/creatinine ratio 15.7. AST 15 ALT 19 Assessment plan: 72-year-old with acute on chronic anemia and pelvic mass noted. Consultation placed to me for pelvic mass by GI. Patient status post 3 units packed red blood cells. History of GI bleeds with multiple endoscopies negative. Patient first with GI bleed 5 years ago along with right hip pain. Besides this hospital visit patient denies weight loss or early satiety. Hematochezia at home and at the hospital. Overall solid pelvic mass likely malignancy but no signs of abdominal or pelvic bleeding ruling out ruptured ovarian tumor with acute bleeding. Previous labs show signs of anemia of chronic disease. Cannot rule out malignancy erosion to GI causing GI bleed and hematochezia. Discussed case with GI Dr. Wren, who feels that endoscopy or colonoscopy will find little findings with little relief. Also spoke with Dr. Johnson who feels stabilizing to outpatient setting unlikely. Discussed case with CORPORATE STATISTICAL FINANCIAL ANALYST oncologist at [place] Dr. Francisco who suggest CT chest, tumor markers and agrees to transport of patient to [place]. Educated patient on all findings and discussion, discussed risk for malignancy and possible causes of GI bleeding. Discussed stability and discharge to an outpatient setting to see Dr. Francisco versus transport and discussion with medical team and Dr. Francisco first benefits alternatives. Patient states understanding, thorough discussion of disease process her history and possible causes along with her options medically, patient with a thorough understanding of her past medical history related to this current situation and elects for transport to [place] for evaluation by Dr. Francisco. Transfer team called with the assistance of Dr. Johnson
--- NOTE | 2022-04-11 11:58 | CT_ITS ---
ACR Level 3 findings have been noted. An addendum which confirms receipt of the report will follow. HISTORY: pelvic mass likely malignant, evaluate metastasis. TECHNIQUE: CT angiogram of the chest was performed after the intravenous administration of IV 75mL Isovue-370. Post-processing of the angiographic images was performed with multiplanar reformation and 3D reconstruction. Individualized dose optimization techniques were used for this CT. 1076 images. COMPARISON: None. FINDINGS: CENTRAL AIRWAYS: Patent. LUNGS: Spiculated and lobulated noncalcified 7 mm right upper lobe nodule. 6 mm groundglass nodule more inferiorly and posteriorly. Small calcified granulomas in the left upper lobe and lingula. PLEURA: No pneumothorax or significant pleural effusion. HEART/PERICARDIUM: Heart within normal limits in size. No pericardial effusion. PULMONARY ARTERIES: Small lingular and right lower lobe segmental and subsegmental filling defects. AORTA/VESSELS: No thoracic aortic aneurysm or dissection flap. MEDIASTINUM/DE: Paratracheal precarinal lymph nodes measuring up to 1.2 cm. Partially calcified 1.9 cm left thyroid nodule. OSSEOUS STRUCTURES: No suspicious osteoblastic or osteolytic lesion. UPPER ABDOMEN: 9 mm enhancing lesion in the hepatic dome. CT/Chest W/WO Contrast IMPRESSION: Small bilateral pulmonary emboli in the lingular and right lower lobe segmental and subsegmental branches. Spiculated and lobulated 7 mm right upper lobe pulmonary nodule, possible neoplasm or metastatic disease. 6 mm right upper lobe groundglass pulmonary nodule. Mild mediastinal lymphadenopathy. Small nonspecific enhancing lesion in the hepatic dome. Electronically Signed: Zulay Henderson MD at 13:33 EDT ,
--- NOTE | 2022-04-11 12:58 | PCM.DC ---
Discharge Instructions Diet Discharge Diet: No restrictions Activity Discharge Activity: Return to Normal Activity Follow Up Care Test Results: Test results from this visit will be discussed in further detail at your follow-up appointment, if applicable. Discharge Plan Admission Admit Date/Time: 04/08/22 23:34 Primary Reason for Your Visit: Acute GI bleed/pelvic mass Attending Provider: Mi Jonhson Primary Care Provider: JEROME MUNGUIA Consulting Providers: Dayanara Loaiza ; Maciel Sahu Discharge Orders/Prescriptions Prescriptions: No Action NK Referrals / Follow Up: JEROME MUNGUIA [Other] [facility] Doctor,Out of [Non-Staff] - Disposition Disposition (needs filled in before D/C Order can be placed): Acute Care Hospital
--- NOTE | 2022-04-11 12:59 | DS.PCM_ITS ---
Providers Date of Admission: 04/08/22 Date of Discharge: 04/11/22 Primary Care Physician: JEROME MUNGUIA Consultations 04/09/22 12:05 Consult: Gastroenterology Routine Consulting Provider: Alysha Doran Reason for Consult: GI bleed EMERGENT Consult: No Notified: Yes Date Notified: 04/09/22 Time Notified: 12:37 Method of Notification: Text 04/11/22 07:50 Consult: CERTIFIED ADAPTIVE PHYSICAL EDUCATOR Routine Consulting Provider: Maciel Sahu Reason for Consult: Right ovarian tumor EMERGENT Consult: No Notified: Yes Date Notified: 04/11/22 Time Notified: 09:53 Method of Notification: paged via broaching machine operator Reason For Visit: GI BLEED, ACUTE BLOOD LOSS ANEMIA Diagnosis Discharge Diagnosis (1) GI bleed: Status: Acute Code(s): K92.2 - Gastrointestinal hemorrhage, unspecified (2) Symptomatic anemia: Status: Acute Code(s): D64.9 - Anemia, unspecified Plan 1. Acute GI bleed, unclear etiology, 2. Acute blood loss anemia/iron deficiency anemia secondary to #1 3. Pelvic mass, suspicious for malignancy 4. Acute PE without hypoxia Medications at Discharge Home Medications NK 04/08/22 Hospital Course Operations None Procedures None Summary of Care Provided Minutes Spent on Discharge: 40 Hospital Course: 72-year-old female with past medical history of recurrent GI bleed, status post repeated endoscopies and colonoscopies with no clear source, iron deficiency anemia with requiring intermittent blood transfusion, resident in [place] who comes in with complaints of maroon-colored stools. Patient is visiting her friends from [place], has noticed dark-colored stools a week prior to admission. She denied any abdominal pain or cramping no nausea or vomiting. She denied any use of NSAIDs. In the ED, her vitals were stable, admitting hemoglobin was 5.2. She was transfused 2 units of packed RBCs. GI was consulted. CT of the abdomen pelvis was requested for which showed a right ovarian mass. Transvaginal ultrasound showed a right ovarian 7 solid mass suggestive of malignancy. Gynecology was consulted and recommended transfer to gynecology oncology unit tertiary center. Patient was accepted by [facility]. CT of the chest with contrast for staging showed right-sided PE, right upper lobe spiculated mass suggestive of metastasis, mediastinal lymphadenopathy. Patient was started on a heparin drip. On the day of discharge, her hemoglobin was 7.2. She received 1 unit of packed RBC. She was also managed on IV Benadryl and his hospital stay. She was continued on IV PPI. Physical Exam Narrative Physical exam: General: Alert, Oriented x3, Cooperative, No apparent distress HEENT: Atraumatic Oral: Moist Mucosa Neck: Supple Lungs: Clear to auscultation Cardiovascular: HS I+II, regular, no murmurs Abdomen: Bowel Sounds Present, Soft, Non Tender Extremities: No edema Skin: No rashes, No breakdown Neurological: Grossly intact Psych/Mental Status: Appropriate Weight / BMI Weight Weight: 57.5 kg Body Mass Index (BMI) 21.3 ABG / Lab / Microbiology Data Result Diagrams: 04/11/22 05:40 04/11/22 05:40 Laboratory: Laboratory Results - last 24 hr 04/08/22 23:29: Crossmatch See Detail 04/10/22 12:30: Direct Antiglob Test NEG w/POLYSPECIFIC 04/11/22 05:40: WBC 5.0, RBC 2.55 L, Hgb 7.0 L, Hct 22.9 L, MCV 89.8, MCH 27.5, MCHC 30.6 L, RDW Std Deviation 54.9 H, RDW Coeff of Allan 16.9 H, Plt Count 225, MPV 10.4, Immature Gran % (Auto) 0.400, Neut % (Auto) 65.4, Lymph % (Auto) 21.6, [place] % (Auto) 9.4, Eos % (Auto) 2.8, Baso % (Auto) 0.4, Absolute Neuts (auto) 3.3, Absolute Lymphs (auto) 1.08, Nucleated RBC % 0 04/11/22 05:40: Sodium 143, Potassium 3.7, Chloride 115 H, Carbon Dioxide 22.0, Anion Gap 6, BUN 11, Creatinine 0.70, Estim Creat Clear Calc 42.62, Est GFR (MDRD) Af Amer 105, Est GFR (MDRD) Non-Af 87, BUN/Creatinine Ratio 15.7, Glucose 89, Calcium 7.9 L, Total Bilirubin 0.30, AST 15, ALT 19, Alkaline Phosphatase 41 L, Total Protein 5.0 L, Albumin 2.6 L, Globulin 2.4, Albumin/Globulin Ratio 1.1 Radiography Diagnostic Testing: Radiology Impression Abdomen/Pelvis CTA 04/10/22 12:03 IMPRESSION: 4.97 x 5.97 x 4.9 semisolid mass with increased vascularity in the right hemipelvis displacing the rectum towards the left side of the midline. This may represent either an ovarian neoplasm versus a pedunculated uterine fibroid or possible colonic mass. Correlation with ultrasound is recommended. Electronically Signed: Doc Bellamy MD at 13:11 EDT , Transvaginal US 04/10/22 16:55 IMPRESSION: 7 cm heterogeneous solid mass in the right ovary worrisome for tumor with the small amount of free fluid. Electronically Signed: Ambrosio Gunn MD at 18:09 EDT , D/C Instructions Discharge Diet: No restrictions Meaningful Use Info Meaningful Use Diagnoses (Choose all that apply): VTE VTE Anticoag overlap given w/in hospital stay or rx'd at dc?: No Pt receive overlap for 5 days?: No Reason overlap not ordered, prescribed, or given for 5 days: Treatment Not Indicated Discharge Plan Admission Admit Date/Time: 04/08/22 23:34 Primary Reason for Your Visit: Acute GI bleed/pelvic mass Attending Provider: Mi Johnson Primary Care Provider: JEROME MUNGUIA Consulting Providers: Dayanara Loaiza ; Maciel Sahu Discharge Orders/Prescriptions Prescriptions: No Action NK Referrals / Follow Up: JEROME MUNGUIA [Other] [facility] Doctor,Out of [Non-Staff] - Disposition Disposition (needs filled in before D/C Order can be placed): Acute Care Hospital Charges/Coding Visit Charges Inpatient E&M: 02044 Disch Hosp
[2022-04-11 16:23] LABS: International Normalized Ratio 1.2; Prothrombin Time (Protime)PT. 15.1 SECONDS (11.7-14.9)
[2022-04-11] MEDS: HEPARIN/D5w 25,000 UNITS 25,000 UNITS/250 ML IV.SOLN. 8 UNITS CONT INF (16:42)
[2022-04-11 17:37] LABS: Hematocrit 27.6 % (37-47)
--- NOTE | 2022-04-11 17:52 | NURSING ---
Report called to nurse Razo for pt transport to [place].
[2022-04-11] MEDS: 0.9% Saline Lock 10 ML Syringe IV (18:35)
[2022-04-12 11:32] LABS: Carbohydrate AG 19-9 5 U/mL (0-35); Carcinoembryonic Antigen < 0.3 ng/mL (0.0-4.7)
[2022-04-13 13:52] LABS: Cancer Antigen 125 2303 2.9 U/mL (0.0-38.1); Haptoglobin 117 mg/dL (42-346)
== END 2022-04-11 21:35 | disposition short-term general hospital (02) | DRG 377 ==
LOC: ED 23:25 → PCU 04-09 04:18
PROVIDERS: Internal Medicine Gastroenterology; Obstetrics & Gynecology; Admitting Provider Family Medicine; Emergency Provider Emergency Medicine; Visit Provider Internal Medicine
DX: K92.2 Gastrointestinal hemorrhage, unspecified (principal); I26.99 Other pulmonary embolism without acute cor pulmonale; D62 Acute posthemorrhagic anemia; N83.8 Other noninflammatory disorders of ovary, fallopian tube and broad ligament; Z66 Do not resuscitate; Z79.899 Other long term (current) drug therapy
CPT/HCPCS: 36415; 71270; 74174; 76830; 80053; 82378; 82728; 83010; 83540; 83550; 83605; 85014; 85018; 85025; 85045; 85610; 85730; 86301; 86304; 86850; 86880; 86900; 86901; 86920; 86922; 93005; 99284; J7030; J7040; J7050; P9016; Q9967; A4216; J2916